=== PATIENT | female | born 1975 | race Caucasian/White ===

== ENCOUNTER 2022-11-08 11:50 | Inpatient (IN) | payer MEDICARE, MEDICAID ==
[~2022-11-08] VITALS: Ht 157.5 cm; Wt 84.8 kg
[2022-11-08] MEDS ORDERED: HALOPERIDOL LACTATE 5 MG/ML VIAL IM ONE ×2 (12:45→22:45)
[2022-11-08] MEDS ORDERED: DiphenhydrAMINE HCL 50 MG/ML VIAL IM ONE ×2 (12:45→22:45)
[2022-11-08] MEDS ORDERED: LORazepam 2 MG/ML VIAL IM ONE ×2 (12:45→22:45)
[2022-11-08 14:28] LABS: BASOPHILS % (AUTO) 0.5 % (0.0-2.0); EOSINOPHILS % (AUTO) 1.7 % (1.0-6.0); HEMATOCRIT 37.6 % (41-53); LYMPHOCYTES # (AUTO) 1.8 K/uL (1.0-4.8); LYMPHOCYTES % (AUTO) 20.7 % (22.0-44.0); MEAN CORPUSCULAR HEMOGLOBIN 28.4 pg (26.0-34.0); MEAN CORPUSCULAR HGB CONC 31.9 G/dL (31.0-37.0); MEAN CORPUSCULAR VOLUME 89 fL (80-100); MONOCYTES # (AUTO) 0.7 K/uL (0.1-1.0); MONOCYTES % (AUTO) 8.3 % (2.0-9.0); NEUTROPHILS # (AUTO) 6.1 K/uL (1.8-7.7); NEUTROPHILS % (AUTO) 68.8 % (40.0-70.0); PLATELET COUNT (AUTO) 264 K/uL (150-450); RED BLOOD CELL COUNT(AUTO) 4.23 MIL/uL (4.50-5.90); RED CELL DISTRIBUTION WIDTH 15.3 % (11.5-14.5)
[2022-11-08 14:39] LABS: ANION GAP 7 mmol/L (8-16); CALCIUM, TOTAL 8.7 mg/dL (8.8-10.5); CARBON DIOXIDE 25 mmol/L (22-29); CHLORIDE 103 mmol/L (98-107); GLUCOSE,RANDOM 91 mg/dL (70-110); POTASSIUM 3.2 mmol/L (3.5-5.1); SODIUM SERUM 135 mmol/L (136-145); UREA NITROGEN, BLOOD 15 mg/dL (7-18)
[2022-11-08 14:42] LABS: GLOMERULAR FILTR. RATE CALC > 60 mL/min (>60)
[2022-11-08 14:44] LABS: ALANINE AMINOTRANSFERASE 31 U/L (12-78); ALBUMIN 2.5 g/dL (3.4-5.0); ALKALINE PHOSPHATASE 86 U/L (46-116); ASPARTATE AMINOTRANSFERASE 29 U/L (15-37); BILIRUBIN,TOTAL 0.4 mg/dL (0.1-1.0); TOTAL PROTEIN, SERUM 6.4 g/dL (6.4-8.2)
[2022-11-08] MEDS ORDERED: PROMETHAZINE HCL 25 MG TABLET PO PRN (22:00)
[2022-11-08] MEDS ORDERED: MAGNESIUM HYDROXIDE SUSPENSION 30 ML UDCUP PO PRN (22:00)
[2022-11-08] MEDS ORDERED: GuaiFENesin/D-METHORPHAN [SUGAR-FREE] 200-20MG/10 ML SYRUP UDCUP PO PRN (22:00)
[2022-11-08] MEDS ORDERED: ACETAMINOPHEN 325 MG TABLET PO PRN (22:00)
[2022-11-08] MEDS ORDERED: MAG HYDROX/AL HYDROX/SIMETH ES 30 ML SUSPENSION UDCUP PO PRN (22:00)
[2022-11-08] MEDS ORDERED: LOPERAMIDE HCL 2 MG CAPSULE PO PRN (22:00)
[2022-11-08] MEDS ORDERED: ZOLPIDEM TARTRATE 10 MG TABLET PO PRN (22:00)
[2022-11-08] MEDS ORDERED: HydrOXYzine PAMOATE 50 MG CAPSULE PO PRN (22:00)
[2022-11-08] MEDS ORDERED: TUBERCULIN, PURIFIED PROTEIN DERIVATIVE 5 TU/0.1 ML SYRINGE ID ONE (22:00)
[2022-11-08 23:10] LABS: COVID AG,FIA SOURCE NASAL SWAB
[2022-11-09 08:33] VITALS: BP 137/66
[2022-11-09] MEDS: NALTREXONE HCL 50 MG TABLET PO SCH (09:00)
[2022-11-09] MEDS: FOLIC ACID 1 MG TABLET PO SCH (09:00)
[2022-11-09] MEDS: MULTIVITAMINS WITH MINERALS, THERAPEUTIC TABLET PO SCH (09:00)
[2022-11-09] MEDS: THIAMINE 100 MG TABLET PO SCH ×2 (09:00→17:00)
[2022-11-09] MEDS ORDERED: POTASSIUM CHLORIDE 20 MEQ ER TABLET PO ONE ×2 (14:45→21:00)
[2022-11-09] MEDS: MELATONIN 5 MG TABLET PO SCH (21:00)
[2022-11-09] MEDS: OLANZapine 5 MG RAPDIS TABLET PO SCH (21:00)
[2022-11-10] MEDS ORDERED: POTASSIUM CHLORIDE 20 MEQ ER TABLET PO ONE (07:45)
[2022-11-10] MEDS: THIAMINE 100 MG TABLET PO SCH ×2 (08:18→16:37)
[2022-11-10] MEDS: NALTREXONE HCL 50 MG TABLET PO SCH (08:18)
[2022-11-10] MEDS: MULTIVITAMINS WITH MINERALS, THERAPEUTIC TABLET PO SCH (08:19)
[2022-11-10] MEDS: FOLIC ACID 1 MG TABLET PO SCH (08:19)
[2022-11-10 08:27] VITALS: BP 130/92
[2022-11-10] MEDS: DIVALPROEX SODIUM 500 MG ER TABLET PO SCH ×2 (19:57→21:00)
[2022-11-10] MEDS: MELATONIN 5 MG TABLET PO SCH ×2 (19:57→21:00)
[2022-11-10] MEDS: OLANZapine 5 MG RAPDIS TABLET PO SCH ×2 (19:58→21:00)
[2022-11-10] MEDS ORDERED: PALIPERIDONE PALMITATE 234 MG/1.5 ML SYRINGE IM ONE (21:00)
[2022-11-11 08:16] VITALS: BP 110/62
[2022-11-11] MEDS: MULTIVITAMINS WITH MINERALS, THERAPEUTIC TABLET PO SCH (08:27)
[2022-11-11] MEDS: NALTREXONE HCL 50 MG TABLET PO SCH (08:28)
[2022-11-11] MEDS: FOLIC ACID 1 MG TABLET PO SCH (08:28)
[2022-11-11] MEDS: THIAMINE 100 MG TABLET PO SCH ×2 (08:29→16:30)
[2022-11-11] MEDS: OLANZapine 5 MG RAPDIS TABLET PO PRN (12:59)
[2022-11-11] MEDS: LORazepam 2 MG TABLET PO PRN (12:59)
[2022-11-11 15:44] LABS: APPEARANCE,URINE HAZY (CLEAR); BILIRUBIN,URINE NEGATIVE (NEGATIVE); GLUCOSE, URINE (UA) NEGATIVE (NEGATIVE); LEUKOCYTE ESTERASE ,URINE NEGATIVE (NEGATIVE); NITRATE,URINE NEGATIVE (NEGATIVE); OCCULT BLOOD,URINE NEGATIVE (NEGATIVE); PROTEIN,URINE TRACE mg/dL (NEGATIVE); SPECIFIC GRAVITIY, URINE 1.021 (1.003-1.030); UROBILINOGEN,URINE <=1.0 mg/dL (<=1.0)
[2022-11-11 15:45] LABS: AMPHET/METH SCREEN,URINE POSITIVE (NEGATIVE); BARBITURATE SCREEN, URINE NEGATIVE (NEGATIVE); BENZODIAZEPINES SCREEN,URINE NEGATIVE (NEGATIVE); CANNABINOID SCREEN,URINE NEGATIVE (NEGATIVE); COCAINE SCREEN,URINE NEGATIVE (NEGATIVE); METHADONE SCREEN, URINE NEGATIVE (NEGATIVE); OPIATE SCREEN,URINE NEGATIVE (NEGATIVE)
[2022-11-11 15:48] LABS: PHENCYCLIDINE SCREEN,URINE NEGATIVE (NEGATIVE)
[2022-11-11] MEDS: OLANZapine 5 MG RAPDIS TABLET PO SCH (20:13)
[2022-11-11] MEDS: DIVALPROEX SODIUM 500 MG ER TABLET PO SCH (20:13)
[2022-11-11] MEDS: MELATONIN 5 MG TABLET PO SCH (20:13)
[2022-11-11 21:04] VITALS: BP 141/76
[2022-11-12] MEDS: FOLIC ACID 1 MG TABLET PO SCH (10:13)
[2022-11-12] MEDS: NALTREXONE HCL 50 MG TABLET PO SCH (10:13)
[2022-11-12] MEDS: LORazepam 2 MG TABLET PO PRN (10:13)
[2022-11-12] MEDS: MULTIVITAMINS WITH MINERALS, THERAPEUTIC TABLET PO SCH (10:13)
[2022-11-12] MEDS: THIAMINE 100 MG TABLET PO SCH ×2 (10:13→16:15)
[2022-11-12] MEDS: OLANZapine 5 MG RAPDIS TABLET PO PRN (14:14)
[2022-11-12] MEDS ORDERED: LORazepam 2 MG/ML VIAL ONE (16:32)
[2022-11-12] MEDS ORDERED: HALOPERIDOL LACTATE 5 MG/ML VIAL ONE (16:33)
[2022-11-12] MEDS ORDERED: DiphenhydrAMINE HCL 50 MG/ML VIAL ONE (16:33)
[2022-11-12] MEDS ORDERED: LORazepam 2 MG/ML VIAL IM ONE (16:45)
[2022-11-12] MEDS ORDERED: HALOPERIDOL LACTATE 5 MG/ML VIAL IM ONE (16:45)
[2022-11-12] MEDS ORDERED: DiphenhydrAMINE HCL 50 MG/ML VIAL IM ONE (16:45)
[2022-11-12] MEDS: DIVALPROEX SODIUM 500 MG ER TABLET PO SCH (21:00)
[2022-11-12] MEDS: MELATONIN 5 MG TABLET PO SCH (21:00)
[2022-11-13] MEDS: NALTREXONE HCL 50 MG TABLET PO SCH (09:00)
[2022-11-13] MEDS: THIAMINE 100 MG TABLET PO SCH ×2 (09:00→17:00)
[2022-11-13] MEDS: MULTIVITAMINS WITH MINERALS, THERAPEUTIC TABLET PO SCH (09:00)
[2022-11-13] MEDS: FOLIC ACID 1 MG TABLET PO SCH (09:00)
[2022-11-13] MEDS: LORazepam 2 MG TABLET PO PRN (14:00)
[2022-11-13] MEDS: OLANZapine 5 MG RAPDIS TABLET PO PRN (14:00)
[2022-11-13] MEDS ORDERED: DiphenhydrAMINE HCL 50 MG/ML VIAL IM ONE (14:30)
[2022-11-13] MEDS ORDERED: LORazepam 2 MG/ML VIAL IM ONE (14:30)
[2022-11-13] MEDS ORDERED: HALOPERIDOL LACTATE 5 MG/ML VIAL IM ONE (14:30)
[2022-11-13] MEDS ORDERED: DiphenhydrAMINE HCL 50 MG/ML VIAL ONE (14:31)
[2022-11-13] MEDS: MELATONIN 5 MG TABLET PO SCH (21:00)
[2022-11-13] MEDS: DIVALPROEX SODIUM 500 MG ER TABLET PO SCH (21:00)
[2022-11-14] MEDS ORDERED: PALIPERIDONE PALMITATE 156 MG/ML SYRINGE IM ONE (09:00)
[2022-11-14] MEDS ORDERED: LORazepam 2 MG/ML VIAL ONE (09:01)
[2022-11-14] MEDS ORDERED: HALOPERIDOL LACTATE 5 MG/ML VIAL ONE (09:02)
[2022-11-14] MEDS ORDERED: DiphenhydrAMINE HCL 50 MG/ML VIAL ONE (09:02)
[2022-11-14] MEDS ORDERED: LORazepam 2 MG/ML VIAL IM ONE (09:15)
[2022-11-14] MEDS ORDERED: DiphenhydrAMINE HCL 50 MG/ML VIAL IM ONE (09:15)
[2022-11-14] MEDS ORDERED: HALOPERIDOL LACTATE 5 MG/ML VIAL IM ONE (09:15)
[2022-11-14] MEDS: THIAMINE 100 MG TABLET PO SCH ×2 (09:42→16:58)
[2022-11-14] MEDS: MULTIVITAMINS WITH MINERALS, THERAPEUTIC TABLET PO SCH (09:42)
[2022-11-14] MEDS: NALTREXONE HCL 50 MG TABLET PO SCH (09:42)
[2022-11-14] MEDS: FOLIC ACID 1 MG TABLET PO SCH (09:42)
[2022-11-14] MEDS: DIVALPROEX SODIUM 500 MG ER TABLET PO SCH (20:21)
[2022-11-14] MEDS: MELATONIN 5 MG TABLET PO SCH (20:21)
[2022-11-15 08:15] VITALS: BP 129/80
[2022-11-15] MEDS: FOLIC ACID 1 MG TABLET PO SCH (09:14)
[2022-11-15] MEDS: OLANZapine 10 MG RAPDIS TABLET PO SCH ×2 (09:14→16:54)
[2022-11-15] MEDS: NALTREXONE HCL 50 MG TABLET PO SCH (09:14)
[2022-11-15] MEDS: THIAMINE 100 MG TABLET PO SCH ×2 (09:14→16:54)
[2022-11-15] MEDS: MULTIVITAMINS WITH MINERALS, THERAPEUTIC TABLET PO SCH (09:14)
[2022-11-15] MEDS: LORazepam 2 MG TABLET PO PRN (09:17)
[2022-11-15] MEDS: MELATONIN 5 MG TABLET PO SCH (20:43)
[2022-11-15] MEDS: DIVALPROEX SODIUM 500 MG ER TABLET PO SCH (20:44)
[2022-11-16 08:31] VITALS: BP 112/69
[2022-11-16] MEDS: MULTIVITAMINS WITH MINERALS, THERAPEUTIC TABLET PO SCH (08:41)
[2022-11-16] MEDS: OLANZapine 5 MG RAPDIS TABLET PO PRN (08:41)
[2022-11-16] MEDS: NALTREXONE HCL 50 MG TABLET PO SCH (08:42)
[2022-11-16] MEDS: THIAMINE 100 MG TABLET PO SCH ×3 (08:42→17:14)
[2022-11-16] MEDS: LORazepam 2 MG TABLET PO PRN (08:42)
[2022-11-16] MEDS: FOLIC ACID 1 MG TABLET PO SCH (08:42)
[2022-11-16] MEDS: DIVALPROEX SODIUM 500 MG ER TABLET PO SCH (20:14)
[2022-11-16] MEDS: MELATONIN 5 MG TABLET PO SCH (20:15)
[2022-11-17 08:12] VITALS: BP 118/79
[2022-11-17] MEDS: THIAMINE 100 MG TABLET PO SCH ×2 (08:51→16:23)
[2022-11-17] MEDS: MULTIVITAMINS WITH MINERALS, THERAPEUTIC TABLET PO SCH (08:51)
[2022-11-17] MEDS: NALTREXONE HCL 50 MG TABLET PO SCH (08:51)
[2022-11-17] MEDS: FOLIC ACID 1 MG TABLET PO SCH (08:51)
[2022-11-17] MEDS ORDERED: CloZAPine 25 MG TABLET PO SCH (09:00)
[2022-11-17 12:41] LABS: GLUCOMETER DEV NAME(LOC) POC.BV
[2022-11-17] MEDS: OLANZapine 5 MG RAPDIS TABLET PO PRN (15:59)
[2022-11-17] MEDS: GABAPENTIN 300 MG CAPSULE PO PRN (15:59)
[2022-11-17] MEDS: MELATONIN 5 MG TABLET PO SCH (20:57)
[2022-11-17] MEDS: DIVALPROEX SODIUM 500 MG ER TABLET PO SCH (20:57)
[2022-11-18] MEDS: GABAPENTIN 300 MG CAPSULE PO PRN ×2 (06:41→12:48)
[2022-11-18] MEDS: OLANZapine 5 MG RAPDIS TABLET PO PRN ×2 (06:41→12:47)
[2022-11-18 07:26] LABS: BASOPHILS % (AUTO) 0.9 % (0.0-2.0); EOSINOPHILS % (AUTO) 1.7 % (1.0-6.0); HEMATOCRIT 41.8 % (36-46); HEMOGLOBIN 13.7 g/dL (12.0-16.0); LYMPHOCYTES # (AUTO) 2.1 K/uL (1.0-4.8); LYMPHOCYTES % (AUTO) 28.7 % (22.0-44.0); MEAN CORPUSCULAR HEMOGLOBIN 28.9 pg (26.0-34.0); MEAN CORPUSCULAR HGB CONC 32.7 G/dL (31.0-37.0); MEAN CORPUSCULAR VOLUME 88 fL (80-100); MONOCYTES # (AUTO) 0.5 K/uL (0.1-1.0); MONOCYTES % (AUTO) 6.9 % (2.0-9.0); NEUTROPHILS # (AUTO) 4.4 K/uL (1.8-7.7); NEUTROPHILS % (AUTO) 61.8 % (40.0-70.0); PLATELET COUNT (AUTO) 243 K/uL (150-450); RED BLOOD CELL COUNT(AUTO) 4.73 MIL/uL (4.00-5.20); RED CELL DISTRIBUTION WIDTH 15.3 % (11.5-14.5)
[2022-11-18 08:13] VITALS: BP 119/86
[2022-11-18] MEDS: THIAMINE 100 MG TABLET PO SCH ×3 (09:00→17:00)
[2022-11-18] MEDS: FOLIC ACID 1 MG TABLET PO SCH ×2 (09:00→12:47)
[2022-11-18] MEDS: NALTREXONE HCL 50 MG TABLET PO SCH ×2 (09:00→12:47)
[2022-11-18] MEDS: MULTIVITAMINS WITH MINERALS, THERAPEUTIC TABLET PO SCH ×2 (09:00→12:47)
[2022-11-18] MEDS ORDERED: CloZAPine 25 MG TABLET PO SCH ×3 (09:00→21:00)
[2022-11-18] MEDS ORDERED: HALOPERIDOL LACTATE 5 MG/ML VIAL ONE (14:59)
[2022-11-18] MEDS ORDERED: HALOPERIDOL LACTATE 5 MG/ML VIAL IM ONE (15:00)
[2022-11-18] MEDS ORDERED: LORazepam 2 MG/ML VIAL IM ONE (15:00)
[2022-11-18] MEDS ORDERED: DiphenhydrAMINE HCL 50 MG/ML VIAL IM ONE (15:00)
[2022-11-18] MEDS: MELATONIN 5 MG TABLET PO SCH (21:00)
[2022-11-18] MEDS: DIVALPROEX SODIUM 500 MG ER TABLET PO SCH (21:00)
[2022-11-19] MEDS ORDERED: CloZAPine 25 MG TABLET PO SCH ×4 (09:00→21:00)
[2022-11-19] MEDS: NALTREXONE HCL 50 MG TABLET PO SCH (09:42)
[2022-11-19] MEDS: MULTIVITAMINS WITH MINERALS, THERAPEUTIC TABLET PO SCH (09:42)
[2022-11-19] MEDS: GABAPENTIN 300 MG CAPSULE PO PRN (09:44)
[2022-11-19] MEDS: OLANZapine 5 MG RAPDIS TABLET PO PRN (09:44)
[2022-11-19] MEDS ORDERED: LORazepam 2 MG/ML VIAL IM ONE (16:45)
[2022-11-19] MEDS ORDERED: HALOPERIDOL LACTATE 5 MG/ML VIAL IM ONE (16:45)
[2022-11-19] MEDS ORDERED: DiphenhydrAMINE HCL 50 MG/ML VIAL IM ONE (16:45)
[2022-11-19 19:27] VITALS: BP 113/84
[2022-11-19] MEDS: MELATONIN 5 MG TABLET PO SCH (20:11)
[2022-11-19] MEDS: DIVALPROEX SODIUM 500 MG ER TABLET PO SCH (20:11)
[2022-11-20 08:21] VITALS: BP 112/68
[2022-11-20] MEDS: MULTIVITAMINS WITH MINERALS, THERAPEUTIC TABLET PO SCH (08:24)
[2022-11-20] MEDS: NALTREXONE HCL 50 MG TABLET PO SCH (08:24)
[2022-11-20] MEDS ORDERED: CloZAPine 25 MG TABLET PO SCH ×3 (09:00→21:00)
[2022-11-20] MEDS: DIVALPROEX SODIUM 500 MG ER TABLET PO SCH (20:22)
[2022-11-20] MEDS: MELATONIN 5 MG TABLET PO SCH (20:22)
[2022-11-21] MEDS: MULTIVITAMINS WITH MINERALS, THERAPEUTIC TABLET PO SCH (09:38)
[2022-11-21] MEDS: CloZAPine 25 MG TABLET PO SCH ×2 (09:38→20:20)
[2022-11-21] MEDS: OLANZapine 5 MG RAPDIS TABLET PO PRN (09:39)
[2022-11-21] MEDS: NALTREXONE HCL 50 MG TABLET PO SCH (09:39)
[2022-11-21] MEDS: DIVALPROEX SODIUM 500 MG ER TABLET PO SCH (20:21)
[2022-11-21] MEDS: MELATONIN 5 MG TABLET PO SCH (20:21)
[2022-11-22] MEDS ORDERED: CloZAPine 25 MG TABLET PO SCH (09:00)
[2022-11-22] MEDS: CloZAPine 25 MG TABLET PO SCH ×2 (09:25→20:46)
[2022-11-22] MEDS: NALTREXONE HCL 50 MG TABLET PO SCH (09:25)
[2022-11-22] MEDS: MULTIVITAMINS WITH MINERALS, THERAPEUTIC TABLET PO SCH (09:25)
[2022-11-22] MEDS: OLANZapine 5 MG RAPDIS TABLET PO PRN ×2 (09:53→16:29)
[2022-11-22] MEDS: GABAPENTIN 300 MG CAPSULE PO PRN (16:29)
[2022-11-22 20:18] VITALS: BP 100/63
[2022-11-22] MEDS: MELATONIN 5 MG TABLET PO SCH (20:46)
[2022-11-22] MEDS: DIVALPROEX SODIUM 500 MG ER TABLET PO SCH (20:46)
[2022-11-22] MEDS ORDERED: CloZAPine 100 MG TABLET PO SCH (21:00)
[2022-11-23 08:31] VITALS: BP 119/81
[2022-11-23] MEDS ORDERED: CloZAPine 25 MG TABLET PO SCH ×2 (09:00)
[2022-11-23] MEDS: NALTREXONE HCL 50 MG TABLET PO SCH (09:11)
[2022-11-23] MEDS: MULTIVITAMINS WITH MINERALS, THERAPEUTIC TABLET PO SCH (09:11)
[2022-11-23] MEDS: GABAPENTIN 300 MG CAPSULE PO PRN (17:30)
[2022-11-23] MEDS: OLANZapine 5 MG RAPDIS TABLET PO PRN (17:31)
[2022-11-23] MEDS ORDERED: CloZAPine 100 MG TABLET PO SCH ×2 (21:00)
[2022-11-23] MEDS: DIVALPROEX SODIUM 500 MG ER TABLET PO SCH (21:01)
[2022-11-23] MEDS: MELATONIN 5 MG TABLET PO SCH (21:01)
[2022-11-24] MEDS ORDERED: CloZAPine 25 MG TABLET PO SCH ×2 (09:00)
[2022-11-24] MEDS: MULTIVITAMINS WITH MINERALS, THERAPEUTIC TABLET PO SCH (09:20)
[2022-11-24] MEDS: GABAPENTIN 300 MG CAPSULE PO PRN ×2 (09:20→10:29)
[2022-11-24] MEDS: NALTREXONE HCL 50 MG TABLET PO SCH (09:21)
[2022-11-24] MEDS: OLANZapine 5 MG RAPDIS TABLET PO PRN (10:55)
[2022-11-24] MEDS: DIVALPROEX SODIUM 250 MG ER TABLET PO SCH (20:39)
[2022-11-24] MEDS: DIVALPROEX SODIUM 500 MG ER TABLET PO SCH (20:39)
[2022-11-24] MEDS: MELATONIN 5 MG TABLET PO SCH (20:40)
[2022-11-24] MEDS ORDERED: CloZAPine 100 MG TABLET PO SCH ×2 (21:00)
[2022-11-25] MEDS: GABAPENTIN 300 MG CAPSULE PO PRN (07:34)
[2022-11-25] MEDS: OLANZapine 5 MG RAPDIS TABLET PO PRN (07:35)
[2022-11-25 08:31] VITALS: BP 122/89
[2022-11-25] MEDS ORDERED: CloZAPine 25 MG TABLET PO SCH (09:00)
[2022-11-25] MEDS ORDERED: CloZAPine 100 MG TABLET PO SCH ×2 (09:00→21:00)
[2022-11-25] MEDS: NALTREXONE HCL 50 MG TABLET PO SCH (09:04)
[2022-11-25] MEDS: MULTIVITAMINS WITH MINERALS, THERAPEUTIC TABLET PO SCH (09:04)
[2022-11-25 20:00] VITALS: BP 118/79
[2022-11-25] MEDS: DIVALPROEX SODIUM 500 MG ER TABLET PO SCH (20:25)
[2022-11-25] MEDS: DIVALPROEX SODIUM 250 MG ER TABLET PO SCH (20:34)
[2022-11-25] MEDS: MELATONIN 5 MG TABLET PO SCH (20:34)
[2022-11-25] MEDS ORDERED: TUBERCULIN, PURIFIED PROTEIN DERIVATIVE 5 TU/0.1 ML SYRINGE ID ONE (22:15)
[2022-11-26 07:34] LABS: BASOPHILS % (AUTO) 0.6 % (0.0-2.0); EOSINOPHILS % (AUTO) 3.2 % (1.0-6.0); HEMATOCRIT 41.9 % (36-46); HEMOGLOBIN 13.7 g/dL (12.0-16.0); LYMPHOCYTES # (AUTO) 1.8 K/uL (1.0-4.8); LYMPHOCYTES % (AUTO) 29.4 % (22.0-44.0); MEAN CORPUSCULAR HEMOGLOBIN 28.8 pg (26.0-34.0); MEAN CORPUSCULAR HGB CONC 32.8 G/dL (31.0-37.0); MEAN CORPUSCULAR VOLUME 88 fL (80-100); MONOCYTES # (AUTO) 0.4 K/uL (0.1-1.0); MONOCYTES % (AUTO) 6.9 % (2.0-9.0); NEUTROPHILS # (AUTO) 3.7 K/uL (1.8-7.7); NEUTROPHILS % (AUTO) 59.9 % (40.0-70.0); PLATELET COUNT (AUTO) 244 K/uL (150-450); RED BLOOD CELL COUNT(AUTO) 4.76 MIL/uL (4.00-5.20); RED CELL DISTRIBUTION WIDTH 15.1 % (11.5-14.5)
[2022-11-26 08:26] VITALS: BP 122/83
[2022-11-26] MEDS: OLANZapine 5 MG RAPDIS TABLET PO PRN ×2 (08:40→16:49)
[2022-11-26] MEDS: NALTREXONE HCL 50 MG TABLET PO SCH (08:40)
[2022-11-26] MEDS: MULTIVITAMINS WITH MINERALS, THERAPEUTIC TABLET PO SCH (08:40)
[2022-11-26] MEDS: CloZAPine 100 MG TABLET PO SCH ×2 (08:40→20:05)
[2022-11-26 08:41] LABS: GLUCOMETER DEV NAME(LOC) POC.BV
[2022-11-26] MEDS: GABAPENTIN 300 MG CAPSULE PO PRN (16:49)
[2022-11-26] MEDS ORDERED: LORazepam 2 MG/ML VIAL IM ONE (17:15)
[2022-11-26] MEDS ORDERED: HALOPERIDOL LACTATE 5 MG/ML VIAL IM ONE (17:15)
[2022-11-26] MEDS ORDERED: DiphenhydrAMINE HCL 50 MG/ML VIAL IM ONE (17:15)
[2022-11-26] MEDS: MELATONIN 5 MG TABLET PO SCH (20:05)
[2022-11-26] MEDS: DIVALPROEX SODIUM 500 MG ER TABLET PO SCH (20:05)
[2022-11-26] MEDS: DIVALPROEX SODIUM 250 MG ER TABLET PO SCH (20:05)
[2022-11-27] MEDS ORDERED: CloZAPine 25 MG TABLET PO SCH (09:00)
[2022-11-27] MEDS: MULTIVITAMINS WITH MINERALS, THERAPEUTIC TABLET PO SCH (12:39)
[2022-11-27] MEDS: NALTREXONE HCL 50 MG TABLET PO SCH (12:39)
[2022-11-27] MEDS: CloZAPine 100 MG TABLET PO SCH ×2 (13:00→20:31)
[2022-11-27] MEDS: DIVALPROEX SODIUM 250 MG ER TABLET PO SCH (20:30)
[2022-11-27] MEDS: MELATONIN 5 MG TABLET PO SCH (20:31)
[2022-11-27] MEDS: DIVALPROEX SODIUM 500 MG ER TABLET PO SCH (20:31)
[2022-11-27] MEDS ORDERED: CloZAPine 100 MG TABLET PO SCH (21:00)
[2022-11-28] MEDS: MULTIVITAMINS WITH MINERALS, THERAPEUTIC TABLET PO SCH (08:27)
[2022-11-28] MEDS: NALTREXONE HCL 50 MG TABLET PO SCH (08:27)
[2022-11-28] MEDS ORDERED: CloZAPine 25 MG TABLET PO SCH ×2 (09:00)
[2022-11-28] MEDS: MELATONIN 5 MG TABLET PO SCH (20:18)
[2022-11-28] MEDS: DIVALPROEX SODIUM 500 MG ER TABLET PO SCH (20:18)
[2022-11-28] MEDS: DIVALPROEX SODIUM 250 MG ER TABLET PO SCH (20:18)
[2022-11-28] MEDS ORDERED: CloZAPine 100 MG TABLET PO SCH ×2 (21:00)
[2022-11-29] MEDS ORDERED: CloZAPine 100 MG TABLET PO SCH ×3 (09:00→21:00)
[2022-11-29] MEDS ORDERED: CloZAPine 25 MG TABLET PO SCH (09:00)
[2022-11-29] MEDS: NALTREXONE HCL 50 MG TABLET PO SCH (09:53)
[2022-11-29] MEDS: MULTIVITAMINS WITH MINERALS, THERAPEUTIC TABLET PO SCH (09:54)
[2022-11-29] MEDS: GABAPENTIN 300 MG CAPSULE PO PRN (09:54)
[2022-11-29] MEDS: DIVALPROEX SODIUM 500 MG ER TABLET PO SCH (20:46)
[2022-11-29] MEDS: DIVALPROEX SODIUM 250 MG ER TABLET PO SCH (20:46)
[2022-11-29] MEDS: MELATONIN 5 MG TABLET PO SCH (20:46)
[2022-11-30 08:25] VITALS: BP 116/74
[2022-11-30] MEDS: MULTIVITAMINS WITH MINERALS, THERAPEUTIC TABLET PO SCH (08:43)
[2022-11-30] MEDS: CloZAPine 100 MG TABLET PO SCH ×2 (08:43→20:35)
[2022-11-30] MEDS: NALTREXONE HCL 50 MG TABLET PO SCH (08:43)
[2022-11-30] MEDS: GABAPENTIN 300 MG CAPSULE PO PRN (12:03)
[2022-11-30] MEDS: MELATONIN 5 MG TABLET PO SCH (20:32)
[2022-11-30] MEDS: DIVALPROEX SODIUM 500 MG ER TABLET PO SCH (20:33)
[2022-11-30] MEDS: DIVALPROEX SODIUM 250 MG ER TABLET PO SCH (20:33)
[2022-11-30 20:41] VITALS: BP 118/74
[2022-12-01 08:34] VITALS: BP 106/69
[2022-12-01] MEDS: MULTIVITAMINS WITH MINERALS, THERAPEUTIC TABLET PO SCH (09:14)
[2022-12-01] MEDS: CloZAPine 100 MG TABLET PO SCH ×2 (09:15→20:10)
[2022-12-01] MEDS: NALTREXONE HCL 50 MG TABLET PO SCH (09:15)
[2022-12-01] MEDS ORDERED: TUBERCULIN, PURIFIED PROTEIN DERIVATIVE 5 TU/0.1 ML SYRINGE ID ONE (14:15)
[2022-12-01] MEDS: GABAPENTIN 300 MG CAPSULE PO PRN (16:11)
[2022-12-01 20:00] VITALS: BP 110/74
[2022-12-01] MEDS: DIVALPROEX SODIUM 500 MG ER TABLET PO SCH (20:10)
[2022-12-01] MEDS: MELATONIN 5 MG TABLET PO SCH (20:10)
[2022-12-01] MEDS: DIVALPROEX SODIUM 250 MG ER TABLET PO SCH (20:10)
[2022-12-02 09:02] LABS: BASOPHILS % (AUTO) 0.5 % (0.0-2.0); EOSINOPHILS % (AUTO) 2.2 % (1.0-6.0); HEMATOCRIT 41.3 % (36-46); HEMOGLOBIN 13.3 g/dL (12.0-16.0); LYMPHOCYTES # (AUTO) 1.9 K/uL (1.0-4.8); LYMPHOCYTES % (AUTO) 24.2 % (22.0-44.0); MEAN CORPUSCULAR HEMOGLOBIN 28.3 pg (26.0-34.0); MEAN CORPUSCULAR HGB CONC 32.3 G/dL (31.0-37.0); MEAN CORPUSCULAR VOLUME 88 fL (80-100); MONOCYTES # (AUTO) 0.5 K/uL (0.1-1.0); MONOCYTES % (AUTO) 6.4 % (2.0-9.0); NEUTROPHILS # (AUTO) 5.3 K/uL (1.8-7.7); NEUTROPHILS % (AUTO) 66.7 % (40.0-70.0); PLATELET COUNT (AUTO) 255 K/uL (150-450); RED BLOOD CELL COUNT(AUTO) 4.71 MIL/uL (4.00-5.20); RED CELL DISTRIBUTION WIDTH 15.4 % (11.5-14.5)
[2022-12-02] MEDS: MULTIVITAMINS WITH MINERALS, THERAPEUTIC TABLET PO SCH (09:52)
[2022-12-02] MEDS: CloZAPine 100 MG TABLET PO SCH ×2 (09:53→21:12)
[2022-12-02] MEDS: NALTREXONE HCL 50 MG TABLET PO SCH (09:53)
[2022-12-02] MEDS: GABAPENTIN 300 MG CAPSULE PO PRN (10:30)
[2022-12-02] MEDS: DIVALPROEX SODIUM 500 MG ER TABLET PO SCH (21:13)
[2022-12-02] MEDS: DIVALPROEX SODIUM 250 MG ER TABLET PO SCH (21:13)
[2022-12-02] MEDS: MELATONIN 5 MG TABLET PO SCH (21:13)
[2022-12-03 07:16] LABS: GLUCOMETER DEV NAME(LOC) POC.BV
[2022-12-03] MEDS: NALTREXONE HCL 50 MG TABLET PO SCH (09:35)
[2022-12-03] MEDS: MULTIVITAMINS WITH MINERALS, THERAPEUTIC TABLET PO SCH (09:35)
[2022-12-03] MEDS: CloZAPine 100 MG TABLET PO SCH ×2 (09:36→20:30)
[2022-12-03] MEDS: DIVALPROEX SODIUM 500 MG ER TABLET PO SCH (20:30)
[2022-12-03 20:32] VITALS: BP 112/78
[2022-12-03] MEDS: DIVALPROEX SODIUM 250 MG ER TABLET PO SCH (20:33)
[2022-12-03] MEDS: MELATONIN 5 MG TABLET PO SCH (20:33)
[2022-12-04] MEDS: CloZAPine 100 MG TABLET PO SCH ×2 (09:10→21:32)
[2022-12-04] MEDS: NALTREXONE HCL 50 MG TABLET PO SCH (09:11)
[2022-12-04] MEDS: MULTIVITAMINS WITH MINERALS, THERAPEUTIC TABLET PO SCH (09:11)
[2022-12-04 20:43] VITALS: BP 125/72
[2022-12-04] MEDS: MELATONIN 5 MG TABLET PO SCH (21:31)
[2022-12-04] MEDS: DIVALPROEX SODIUM 250 MG ER TABLET PO SCH (21:32)
[2022-12-04] MEDS: DIVALPROEX SODIUM 500 MG ER TABLET PO SCH (21:32)
[2022-12-05] MEDS: CloZAPine 100 MG TABLET PO SCH ×2 (08:45→21:38)
[2022-12-05] MEDS: MULTIVITAMINS WITH MINERALS, THERAPEUTIC TABLET PO SCH (08:45)
[2022-12-05] MEDS: NALTREXONE HCL 50 MG TABLET PO SCH (08:45)
[2022-12-05] MEDS: GABAPENTIN 300 MG CAPSULE PO PRN (12:08)
[2022-12-05] MEDS: DIVALPROEX SODIUM 250 MG ER TABLET PO SCH (21:38)
[2022-12-05] MEDS: MELATONIN 5 MG TABLET PO SCH (21:38)
[2022-12-05] MEDS: DIVALPROEX SODIUM 500 MG ER TABLET PO SCH (21:39)
[2022-12-06] MEDS: MULTIVITAMINS WITH MINERALS, THERAPEUTIC TABLET PO SCH ×2 (08:58→09:00)
[2022-12-06] MEDS: NALTREXONE HCL 50 MG TABLET PO SCH ×2 (08:58→09:00)
[2022-12-06] MEDS: CloZAPine 100 MG TABLET PO SCH ×3 (08:59→20:46)
[2022-12-06] MEDS: DIVALPROEX SODIUM 250 MG ER TABLET PO SCH (20:46)
[2022-12-06] MEDS: DIVALPROEX SODIUM 500 MG ER TABLET PO SCH (20:46)
[2022-12-06] MEDS: MELATONIN 5 MG TABLET PO SCH (20:46)
[2022-12-07] MEDS: MULTIVITAMINS WITH MINERALS, THERAPEUTIC TABLET PO SCH (08:41)
[2022-12-07] MEDS: NALTREXONE HCL 50 MG TABLET PO SCH (08:41)
[2022-12-07] MEDS: OLANZapine 5 MG RAPDIS TABLET PO PRN (11:51)
[2022-12-07] MEDS: GABAPENTIN 300 MG CAPSULE PO PRN (11:51)
[2022-12-07] MEDS: DIVALPROEX SODIUM 500 MG ER TABLET PO SCH (20:14)
[2022-12-07] MEDS: DIVALPROEX SODIUM 250 MG ER TABLET PO SCH (20:14)
[2022-12-07] MEDS: CloZAPine 100 MG TABLET PO SCH (20:15)
[2022-12-07] MEDS: MELATONIN 5 MG TABLET PO SCH (20:15)
[2022-12-08] MEDS: NALTREXONE HCL 50 MG TABLET PO SCH (09:04)
[2022-12-08] MEDS: MULTIVITAMINS WITH MINERALS, THERAPEUTIC TABLET PO SCH (09:04)
[2022-12-08] MEDS: CloZAPine 100 MG TABLET PO SCH (20:21)
[2022-12-08] MEDS: DIVALPROEX SODIUM 500 MG ER TABLET PO SCH (20:21)
[2022-12-08] MEDS: DIVALPROEX SODIUM 250 MG ER TABLET PO SCH (20:21)
[2022-12-08] MEDS: MELATONIN 5 MG TABLET PO SCH (20:24)
[2022-12-09 08:22] VITALS: BP 109/68
[2022-12-09] MEDS: MULTIVITAMINS WITH MINERALS, THERAPEUTIC TABLET PO SCH (09:05)
[2022-12-09] MEDS: NALTREXONE HCL 50 MG TABLET PO SCH (09:05)
[2022-12-09] MEDS: GABAPENTIN 300 MG CAPSULE PO PRN (13:23)
[2022-12-09] MEDS: OLANZapine 5 MG RAPDIS TABLET PO PRN (15:45)
[2022-12-09] MEDS: DIVALPROEX SODIUM 250 MG ER TABLET PO SCH (20:18)
[2022-12-09] MEDS: MELATONIN 5 MG TABLET PO SCH (20:19)
[2022-12-09] MEDS: DIVALPROEX SODIUM 500 MG ER TABLET PO SCH (20:19)
[2022-12-09] MEDS: CloZAPine 100 MG TABLET PO SCH (20:19)
[2022-12-10 07:15] LABS: BASOPHILS % (AUTO) 0.9 % (0.0-2.0); EOSINOPHILS % (AUTO) 0.2 % (1.0-6.0); HEMATOCRIT 41.9 % (36-46); HEMOGLOBIN 13.7 g/dL (12.0-16.0); LYMPHOCYTES # (AUTO) 2.6 K/uL (1.0-4.8); LYMPHOCYTES % (AUTO) 32.3 % (22.0-44.0); MEAN CORPUSCULAR HEMOGLOBIN 28.2 pg (26.0-34.0); MEAN CORPUSCULAR HGB CONC 32.6 G/dL (31.0-37.0); MEAN CORPUSCULAR VOLUME 87 fL (80-100); MONOCYTES # (AUTO) 0.7 K/uL (0.1-1.0); MONOCYTES % (AUTO) 8.5 % (2.0-9.0); NEUTROPHILS # (AUTO) 4.6 K/uL (1.8-7.7); NEUTROPHILS % (AUTO) 58.1 % (40.0-70.0); PLATELET COUNT (AUTO) 140 K/uL (150-450); RED BLOOD CELL COUNT(AUTO) 4.84 MIL/uL (4.00-5.20); RED CELL DISTRIBUTION WIDTH 15.1 % (11.5-14.5)
[2022-12-10 08:11] LABS: GLUCOMETER DEV NAME(LOC) POC.BV
[2022-12-10] MEDS: MULTIVITAMINS WITH MINERALS, THERAPEUTIC TABLET PO SCH (08:38)
[2022-12-10] MEDS: NALTREXONE HCL 50 MG TABLET PO SCH (08:38)
[2022-12-10 08:51] VITALS: BP 116/72
[2022-12-10] MEDS: GABAPENTIN 300 MG CAPSULE PO PRN (16:02)
[2022-12-10] MEDS: CloZAPine 100 MG TABLET PO SCH (20:07)
[2022-12-10] MEDS: DIVALPROEX SODIUM 500 MG ER TABLET PO SCH (20:07)
[2022-12-10] MEDS: MELATONIN 5 MG TABLET PO SCH (20:07)
[2022-12-10] MEDS: DIVALPROEX SODIUM 250 MG ER TABLET PO SCH (20:07)
[2022-12-11] MEDS: NALTREXONE HCL 50 MG TABLET PO SCH (08:20)
[2022-12-11] MEDS: MULTIVITAMINS WITH MINERALS, THERAPEUTIC TABLET PO SCH (08:20)
[2022-12-11] MEDS: DIVALPROEX SODIUM 250 MG ER TABLET PO SCH (20:37)
[2022-12-11] MEDS: CloZAPine 100 MG TABLET PO SCH (20:37)
[2022-12-11] MEDS: DIVALPROEX SODIUM 500 MG ER TABLET PO SCH (20:37)
[2022-12-11] MEDS: MELATONIN 5 MG TABLET PO SCH (20:38)
[2022-12-12] MEDS: MULTIVITAMINS WITH MINERALS, THERAPEUTIC TABLET PO SCH (08:27)
[2022-12-12] MEDS: GABAPENTIN 300 MG CAPSULE PO PRN (08:27)
[2022-12-12] MEDS: NALTREXONE HCL 50 MG TABLET PO SCH (08:27)
[2022-12-12] MEDS: MELATONIN 5 MG TABLET PO SCH (20:14)
[2022-12-12] MEDS: DIVALPROEX SODIUM 250 MG ER TABLET PO SCH (20:14)
[2022-12-12] MEDS: CloZAPine 100 MG TABLET PO SCH (20:15)
[2022-12-12] MEDS: DIVALPROEX SODIUM 500 MG ER TABLET PO SCH (20:15)
[2022-12-13] MEDS: NALTREXONE HCL 50 MG TABLET PO SCH (09:54)
[2022-12-13] MEDS: MULTIVITAMINS WITH MINERALS, THERAPEUTIC TABLET PO SCH (09:54)
[2022-12-13] MEDS: CloZAPine 100 MG TABLET PO SCH (20:22)
[2022-12-13] MEDS: MELATONIN 5 MG TABLET PO SCH (20:23)
[2022-12-13] MEDS: DIVALPROEX SODIUM 500 MG ER TABLET PO SCH (20:23)
[2022-12-13] MEDS: DIVALPROEX SODIUM 250 MG ER TABLET PO SCH (20:24)
[2022-12-14] MEDS: MULTIVITAMINS WITH MINERALS, THERAPEUTIC TABLET PO SCH (09:48)
[2022-12-14] MEDS: NALTREXONE HCL 50 MG TABLET PO SCH (09:48)
[2022-12-14] MEDS: OLANZapine 5 MG RAPDIS TABLET PO PRN ×2 (11:19→16:19)
[2022-12-14] MEDS: GABAPENTIN 300 MG CAPSULE PO PRN (11:31)
[2022-12-14] MEDS: DIVALPROEX SODIUM 250 MG ER TABLET PO SCH (20:17)
[2022-12-14] MEDS: CloZAPine 100 MG TABLET PO SCH (20:18)
[2022-12-14] MEDS: DIVALPROEX SODIUM 500 MG ER TABLET PO SCH (20:18)
[2022-12-14] MEDS: MELATONIN 5 MG TABLET PO SCH (20:38)
[2022-12-15] MEDS: NALTREXONE HCL 50 MG TABLET PO SCH (08:14)
[2022-12-15] MEDS: MULTIVITAMINS WITH MINERALS, THERAPEUTIC TABLET PO SCH (08:14)
[2022-12-15] MEDS: GABAPENTIN 300 MG CAPSULE PO PRN (17:17)
[2022-12-15] MEDS: NITROFURANTOIN MONOHYD/M-CRYST 100 MG CAPSULE [MACROBID] PO SCH (18:00)
[2022-12-15] MEDS: DIVALPROEX SODIUM 500 MG ER TABLET PO SCH (20:30)
[2022-12-15] MEDS: DIVALPROEX SODIUM 250 MG ER TABLET PO SCH (20:30)
[2022-12-15] MEDS: MELATONIN 5 MG TABLET PO SCH (20:31)
[2022-12-15] MEDS: CloZAPine 100 MG TABLET PO SCH (20:31)
[2022-12-16 07:32] LABS: BASOPHILS % (AUTO) 0.4 % (0.0-2.0); EOSINOPHILS % (AUTO) 0.1 % (1.0-6.0); HEMOGLOBIN 13.2 g/dL (12.0-16.0); LYMPHOCYTES # (AUTO) 2.6 K/uL (1.0-4.8); LYMPHOCYTES % (AUTO) 30.4 % (22.0-44.0); MEAN CORPUSCULAR HEMOGLOBIN 28.4 pg (26.0-34.0); MEAN CORPUSCULAR VOLUME 86 fL (80-100); MONOCYTES # (AUTO) 0.7 K/uL (0.1-1.0); MONOCYTES % (AUTO) 8.5 % (2.0-9.0); NEUTROPHILS # (AUTO) 5.2 K/uL (1.8-7.7); NEUTROPHILS % (AUTO) 60.6 % (40.0-70.0); PLATELET COUNT (AUTO) 174 K/uL (150-450); RED BLOOD CELL COUNT(AUTO) 4.65 MIL/uL (4.00-5.20); RED CELL DISTRIBUTION WIDTH 15.7 % (11.5-14.5)
[2022-12-16 08:10] LABS: ALANINE AMINOTRANSFERASE 75 U/L (12-78); ALBUMIN 2.5 g/dL (3.4-5.0); ALKALINE PHOSPHATASE 214 U/L (46-116); ANION GAP 8 mmol/L (8-16); ASPARTATE AMINOTRANSFERASE 65 U/L (15-37); BILIRUBIN,TOTAL 0.2 mg/dL (0.1-1.0); CALCIUM, TOTAL 8.5 mg/dL (8.8-10.5); CARBON DIOXIDE 30 mmol/L (22-29); CHLORIDE 102 mmol/L (98-107); CREATININE 0.68 mg/dL (0.60-1.30); GLOMERULAR FILTR. RATE CALC > 60 mL/min (>60); GLUCOSE,RANDOM 88 mg/dL (70-110); POTASSIUM 4.1 mmol/L (3.5-5.1); SODIUM SERUM 140 mmol/L (136-145); TOTAL PROTEIN, SERUM 6.9 g/dL (6.4-8.2); UREA NITROGEN, BLOOD 13 mg/dL (7-18)
[2022-12-16] MEDS: NALTREXONE HCL 50 MG TABLET PO SCH (09:57)
[2022-12-16] MEDS: MULTIVITAMINS WITH MINERALS, THERAPEUTIC TABLET PO SCH (09:57)
[2022-12-16] MEDS: NITROFURANTOIN MONOHYD/M-CRYST 100 MG CAPSULE [MACROBID] PO SCH ×2 (09:57→16:44)
[2022-12-16] MEDS: OLANZapine 5 MG RAPDIS TABLET PO PRN (16:51)
[2022-12-16] MEDS: CloZAPine 100 MG TABLET PO SCH (20:08)
[2022-12-16] MEDS: DIVALPROEX SODIUM 250 MG ER TABLET PO SCH (20:09)
[2022-12-16] MEDS: MELATONIN 5 MG TABLET PO SCH (20:10)
[2022-12-16] MEDS: DIVALPROEX SODIUM 500 MG ER TABLET PO SCH (20:10)
[2022-12-17 08:06] LABS: GLUCOMETER DEV NAME(LOC) POC.BV
[2022-12-17] MEDS: NALTREXONE HCL 50 MG TABLET PO SCH (10:16)
[2022-12-17] MEDS: GABAPENTIN 300 MG CAPSULE PO PRN (10:16)
[2022-12-17] MEDS: NITROFURANTOIN MONOHYD/M-CRYST 100 MG CAPSULE [MACROBID] PO SCH ×2 (10:16→16:59)
[2022-12-17] MEDS: MULTIVITAMINS WITH MINERALS, THERAPEUTIC TABLET PO SCH (10:16)
[2022-12-17] MEDS: CloZAPine 100 MG TABLET PO SCH (21:18)
[2022-12-17] MEDS: DIVALPROEX SODIUM 250 MG ER TABLET PO SCH (21:19)
[2022-12-17] MEDS: MELATONIN 5 MG TABLET PO SCH (21:19)
[2022-12-17] MEDS: DIVALPROEX SODIUM 500 MG ER TABLET PO SCH (21:19)
[2022-12-18] MEDS: MULTIVITAMINS WITH MINERALS, THERAPEUTIC TABLET PO SCH ×2 (08:25→08:39)
[2022-12-18] MEDS: NITROFURANTOIN MONOHYD/M-CRYST 100 MG CAPSULE [MACROBID] PO SCH ×2 (08:26→16:44)
[2022-12-18] MEDS: NALTREXONE HCL 50 MG TABLET PO SCH (08:26)
[2022-12-18] MEDS: CloZAPine 100 MG TABLET PO SCH (20:31)
[2022-12-18] MEDS: DIVALPROEX SODIUM 500 MG ER TABLET PO SCH (20:31)
[2022-12-18] MEDS: MELATONIN 5 MG TABLET PO SCH (20:32)
[2022-12-18] MEDS: DIVALPROEX SODIUM 250 MG ER TABLET PO SCH (20:32)
[2022-12-19] MEDS: NITROFURANTOIN MONOHYD/M-CRYST 100 MG CAPSULE [MACROBID] PO SCH ×2 (09:02→17:07)
[2022-12-19] MEDS: MULTIVITAMINS WITH MINERALS, THERAPEUTIC TABLET PO SCH (09:02)
[2022-12-19] MEDS: NALTREXONE HCL 50 MG TABLET PO SCH (09:02)
[2022-12-19] MEDS: DIVALPROEX SODIUM 500 MG ER TABLET PO SCH (21:23)
[2022-12-19] MEDS: CloZAPine 100 MG TABLET PO SCH (21:23)
[2022-12-19] MEDS: MELATONIN 5 MG TABLET PO SCH (21:24)
[2022-12-19] MEDS: DIVALPROEX SODIUM 250 MG ER TABLET PO SCH (21:24)
[2022-12-20] MEDS: MULTIVITAMINS WITH MINERALS, THERAPEUTIC TABLET PO SCH (08:41)
[2022-12-20] MEDS: NALTREXONE HCL 50 MG TABLET PO SCH (08:41)
[2022-12-20] MEDS: NITROFURANTOIN MONOHYD/M-CRYST 100 MG CAPSULE [MACROBID] PO SCH ×2 (08:41→16:52)
[2022-12-20] MEDS: OLANZapine 5 MG RAPDIS TABLET PO PRN (08:42)
[2022-12-20] MEDS: DIVALPROEX SODIUM 500 MG ER TABLET PO SCH (20:22)
[2022-12-20] MEDS: DIVALPROEX SODIUM 250 MG ER TABLET PO SCH (20:22)
[2022-12-20] MEDS: CloZAPine 100 MG TABLET PO SCH (20:22)
[2022-12-20] MEDS: MELATONIN 5 MG TABLET PO SCH (20:22)
[2022-12-21] MEDS: NITROFURANTOIN MONOHYD/M-CRYST 100 MG CAPSULE [MACROBID] PO SCH ×2 (08:56→16:58)
[2022-12-21] MEDS: NALTREXONE HCL 50 MG TABLET PO SCH (08:56)
[2022-12-21] MEDS: MULTIVITAMINS WITH MINERALS, THERAPEUTIC TABLET PO SCH (08:56)
[2022-12-21] MEDS: GABAPENTIN 300 MG CAPSULE PO PRN (08:57)
[2022-12-21] MEDS: DIVALPROEX SODIUM 250 MG ER TABLET PO SCH (20:06)
[2022-12-21] MEDS: MELATONIN 5 MG TABLET PO SCH (20:06)
[2022-12-21] MEDS: DIVALPROEX SODIUM 500 MG ER TABLET PO SCH (20:06)
[2022-12-21] MEDS: CloZAPine 100 MG TABLET PO SCH (20:07)
[2022-12-22] MEDS: NITROFURANTOIN MONOHYD/M-CRYST 100 MG CAPSULE [MACROBID] PO SCH ×2 (09:05→16:52)
[2022-12-22] MEDS: MULTIVITAMINS WITH MINERALS, THERAPEUTIC TABLET PO SCH (09:05)
[2022-12-22] MEDS: NALTREXONE HCL 50 MG TABLET PO SCH (09:05)
[2022-12-22 20:10] VITALS: BP 112/59
[2022-12-22] MEDS: CloZAPine 100 MG TABLET PO SCH (20:22)
[2022-12-22] MEDS: DIVALPROEX SODIUM 500 MG ER TABLET PO SCH (20:23)
[2022-12-22] MEDS: MELATONIN 5 MG TABLET PO SCH (20:23)
[2022-12-22] MEDS: DIVALPROEX SODIUM 250 MG ER TABLET PO SCH (20:23)
[2022-12-23 08:13] LABS: BASOPHILS % (AUTO) 0.4 % (0.0-2.0); EOSINOPHILS % (AUTO) 0 % (1.0-6.0); HEMOGLOBIN 12.9 g/dL (12.0-16.0); LYMPHOCYTES # (AUTO) 2.4 K/uL (1.0-4.8); LYMPHOCYTES % (AUTO) 28.5 % (22.0-44.0); MEAN CORPUSCULAR HEMOGLOBIN 28.9 pg (26.0-34.0); MEAN CORPUSCULAR HGB CONC 33.8 G/dL (31.0-37.0); MEAN CORPUSCULAR VOLUME 85 fL (80-100); MONOCYTES # (AUTO) 1.2 K/uL (0.1-1.0); MONOCYTES % (AUTO) 14.7 % (2.0-9.0); NEUTROPHILS # (AUTO) 4.7 K/uL (1.8-7.7); NEUTROPHILS % (AUTO) 56.4 % (40.0-70.0); PLATELET COUNT (AUTO) 192 K/uL (150-450); RED BLOOD CELL COUNT(AUTO) 4.45 MIL/uL (4.00-5.20); RED CELL DISTRIBUTION WIDTH 16.5 % (11.5-14.5)
[2022-12-23] MEDS: MULTIVITAMINS WITH MINERALS, THERAPEUTIC TABLET PO SCH (08:50)
[2022-12-23] MEDS: NALTREXONE HCL 50 MG TABLET PO SCH (08:50)
[2022-12-23 09:03] VITALS: BP 108/72
[2022-12-23] MEDS: DIVALPROEX SODIUM 500 MG ER TABLET PO SCH (21:15)
[2022-12-23] MEDS: MELATONIN 5 MG TABLET PO SCH (21:18)
[2022-12-23] MEDS: CloZAPine 100 MG TABLET PO SCH (21:18)
[2022-12-23] MEDS: DIVALPROEX SODIUM 250 MG ER TABLET PO SCH (21:20)
[2022-12-24 08:23] VITALS: BP 112/82
[2022-12-24 08:36] LABS: GLUCOMETER DEV NAME(LOC) POC.BV
[2022-12-24] MEDS: NALTREXONE HCL 50 MG TABLET PO SCH (12:45)
[2022-12-24] MEDS: MULTIVITAMINS WITH MINERALS, THERAPEUTIC TABLET PO SCH (12:45)
[2022-12-24] MEDS: GABAPENTIN 300 MG CAPSULE PO PRN (12:46)
[2022-12-24] MEDS: OLANZapine 5 MG RAPDIS TABLET PO PRN (12:46)
[2022-12-24] MEDS: DIVALPROEX SODIUM 250 MG ER TABLET PO SCH (20:22)
[2022-12-24] MEDS: DIVALPROEX SODIUM 500 MG ER TABLET PO SCH (20:22)
[2022-12-24] MEDS: CloZAPine 100 MG TABLET PO SCH (20:23)
[2022-12-24] MEDS: MELATONIN 5 MG TABLET PO SCH (20:24)
[2022-12-25 00:37] VITALS: BP 122/76
[2022-12-25] MEDS: MULTIVITAMINS WITH MINERALS, THERAPEUTIC TABLET PO SCH (08:15)
[2022-12-25] MEDS: NALTREXONE HCL 50 MG TABLET PO SCH (08:15)
[2022-12-25] MEDS: CloZAPine 100 MG TABLET PO SCH (20:21)
[2022-12-25] MEDS: DIVALPROEX SODIUM 250 MG ER TABLET PO SCH (20:21)
[2022-12-25] MEDS: DIVALPROEX SODIUM 500 MG ER TABLET PO SCH (20:21)
[2022-12-25] MEDS: MELATONIN 5 MG TABLET PO SCH (20:21)
[2022-12-26] MEDS: NALTREXONE HCL 50 MG TABLET PO SCH (08:24)
[2022-12-26] MEDS: MULTIVITAMINS WITH MINERALS, THERAPEUTIC TABLET PO SCH (08:24)
[2022-12-26] MEDS: CloZAPine 100 MG TABLET PO SCH (20:25)
[2022-12-26] MEDS: DIVALPROEX SODIUM 500 MG ER TABLET PO SCH (20:26)
[2022-12-26] MEDS: DIVALPROEX SODIUM 250 MG ER TABLET PO SCH (20:27)
[2022-12-26] MEDS: MELATONIN 5 MG TABLET PO SCH (20:27)
[2022-12-27] MEDS: OLANZapine 5 MG RAPDIS TABLET PO PRN (10:24)
[2022-12-27] MEDS: NALTREXONE HCL 50 MG TABLET PO SCH (10:24)
[2022-12-27] MEDS: MULTIVITAMINS WITH MINERALS, THERAPEUTIC TABLET PO SCH (10:24)
[2022-12-27 10:50] VITALS: BP 123/80
[2022-12-27 11:05] VITALS: BP 125/78
[2022-12-27] MEDS: MELATONIN 5 MG TABLET PO SCH (20:52)
[2022-12-27] MEDS: DIVALPROEX SODIUM 250 MG ER TABLET PO SCH (20:53)
[2022-12-27] MEDS: CloZAPine 100 MG TABLET PO SCH (20:53)
[2022-12-27] MEDS: DIVALPROEX SODIUM 500 MG ER TABLET PO SCH (20:53)
[2022-12-27 21:22] VITALS: BP 103/71
[2022-12-28] MEDS: MULTIVITAMINS WITH MINERALS, THERAPEUTIC TABLET PO SCH (08:48)
[2022-12-28] MEDS: NALTREXONE HCL 50 MG TABLET PO SCH (08:48)
[2022-12-28] MEDS: DIVALPROEX SODIUM 500 MG ER TABLET PO SCH (20:14)
[2022-12-28] MEDS: DIVALPROEX SODIUM 250 MG ER TABLET PO SCH (20:15)
[2022-12-28] MEDS: CloZAPine 100 MG TABLET PO SCH (20:15)
[2022-12-28] MEDS: MELATONIN 5 MG TABLET PO SCH (20:15)
[2022-12-29] MEDS: NALTREXONE HCL 50 MG TABLET PO SCH (08:33)
[2022-12-29] MEDS: MULTIVITAMINS WITH MINERALS, THERAPEUTIC TABLET PO SCH (08:33)
[2022-12-29] MEDS: MELATONIN 5 MG TABLET PO SCH (20:34)
[2022-12-29] MEDS: DIVALPROEX SODIUM 250 MG ER TABLET PO SCH (20:34)
[2022-12-29] MEDS: DIVALPROEX SODIUM 500 MG ER TABLET PO SCH (20:34)
[2022-12-29] MEDS: CloZAPine 100 MG TABLET PO SCH (20:36)
[2022-12-30 08:32] VITALS: BP 116/79
[2022-12-30] MEDS: NALTREXONE HCL 50 MG TABLET PO SCH (08:46)
[2022-12-30] MEDS: MULTIVITAMINS WITH MINERALS, THERAPEUTIC TABLET PO SCH (08:46)
[2022-12-30] MEDS: DIVALPROEX SODIUM 500 MG ER TABLET PO SCH (20:43)
[2022-12-30] MEDS: DIVALPROEX SODIUM 250 MG ER TABLET PO SCH (20:43)
[2022-12-30] MEDS: MELATONIN 5 MG TABLET PO SCH (20:43)
[2022-12-30] MEDS: CloZAPine 100 MG TABLET PO SCH (20:44)
[2022-12-31] MEDS: NALTREXONE HCL 50 MG TABLET PO SCH (10:04)
[2022-12-31] MEDS: MULTIVITAMINS WITH MINERALS, THERAPEUTIC TABLET PO SCH (10:04)
[2022-12-31] MEDS: CloZAPine 100 MG TABLET PO SCH (20:13)
[2022-12-31] MEDS: DIVALPROEX SODIUM 500 MG ER TABLET PO SCH (20:14)
[2022-12-31] MEDS: MELATONIN 5 MG TABLET PO SCH (20:14)
[2022-12-31] MEDS: DIVALPROEX SODIUM 250 MG ER TABLET PO SCH (20:14)
[2023-01-01 08:30] VITALS: BP 119/74
[2023-01-01] MEDS: MULTIVITAMINS WITH MINERALS, THERAPEUTIC TABLET PO SCH (08:49)
[2023-01-01] MEDS: NALTREXONE HCL 50 MG TABLET PO SCH (08:49)
[2023-01-01] MEDS: GABAPENTIN 300 MG CAPSULE PO PRN (12:55)
[2023-01-01] MEDS: MELATONIN 5 MG TABLET PO SCH (20:07)
[2023-01-01] MEDS: CloZAPine 100 MG TABLET PO SCH (20:08)
[2023-01-01] MEDS: DIVALPROEX SODIUM 500 MG ER TABLET PO SCH (20:08)
[2023-01-01] MEDS: DIVALPROEX SODIUM 250 MG ER TABLET PO SCH (20:08)
[2023-01-02 00:21] VITALS: BP 137/80
[2023-01-02 07:06] LABS: BASOPHILS % (AUTO) 0.5 % (0.0-2.0); EOSINOPHILS % (AUTO) 0.1 % (1.0-6.0); HEMATOCRIT 40.2 % (36-46); HEMOGLOBIN 13.4 g/dL (12.0-16.0); LYMPHOCYTES % (AUTO) 27.9 % (22.0-44.0); MEAN CORPUSCULAR HEMOGLOBIN 28.3 pg (26.0-34.0); MEAN CORPUSCULAR HGB CONC 33.2 G/dL (31.0-37.0); MEAN CORPUSCULAR VOLUME 85 fL (80-100); MONOCYTES % (AUTO) 13.7 % (2.0-9.0); NEUTROPHILS # (AUTO) 4.1 K/uL (1.8-7.7); NEUTROPHILS % (AUTO) 57.8 % (40.0-70.0); PLATELET COUNT (AUTO) 236 K/uL (150-450); RED BLOOD CELL COUNT(AUTO) 4.71 MIL/uL (4.00-5.20); RED CELL DISTRIBUTION WIDTH 16.9 % (11.5-14.5)
[2023-01-02 08:41] VITALS: BP 120/79
[2023-01-02] MEDS: NALTREXONE HCL 50 MG TABLET PO SCH (09:43)
[2023-01-02] MEDS: MULTIVITAMINS WITH MINERALS, THERAPEUTIC TABLET PO SCH (09:43)
[2023-01-02 20:06] LABS: GLUCOMETER DEV NAME(LOC) POC.BV
[2023-01-02] MEDS: MELATONIN 5 MG TABLET PO SCH (21:00)
[2023-01-02] MEDS: DIVALPROEX SODIUM 500 MG ER TABLET PO SCH (21:06)
[2023-01-02] MEDS: DIVALPROEX SODIUM 250 MG ER TABLET PO SCH (21:06)
[2023-01-02] MEDS: CloZAPine 100 MG TABLET PO SCH (21:08)
[2023-01-03] MEDS: MULTIVITAMINS WITH MINERALS, THERAPEUTIC TABLET PO SCH (08:18)
[2023-01-03] MEDS: NALTREXONE HCL 50 MG TABLET PO SCH (08:18)
[2023-01-03 08:28] VITALS: BP 119/78
[2023-01-03] MEDS: GABAPENTIN 300 MG CAPSULE PO PRN (09:10)
[2023-01-03] MEDS: DIVALPROEX SODIUM 500 MG ER TABLET PO SCH (20:48)
[2023-01-03] MEDS: DIVALPROEX SODIUM 250 MG ER TABLET PO SCH (20:49)
[2023-01-03] MEDS: CloZAPine 100 MG TABLET PO SCH (20:49)
[2023-01-03] MEDS: MELATONIN 5 MG TABLET PO SCH (20:49)
[2023-01-04] MEDS: MULTIVITAMINS WITH MINERALS, THERAPEUTIC TABLET PO SCH (08:16)
[2023-01-04] MEDS: NALTREXONE HCL 50 MG TABLET PO SCH (08:16)
[2023-01-04 13:42] VITALS: BP 111/68
[2023-01-04] MEDS: CloZAPine 100 MG TABLET PO SCH (20:27)
[2023-01-04] MEDS: DIVALPROEX SODIUM 250 MG ER TABLET PO SCH (20:28)
[2023-01-04] MEDS: MELATONIN 5 MG TABLET PO SCH (20:28)
[2023-01-04] MEDS: DIVALPROEX SODIUM 500 MG ER TABLET PO SCH (20:28)
[2023-01-05 08:26] VITALS: BP 110/65
[2023-01-05] MEDS: MULTIVITAMINS WITH MINERALS, THERAPEUTIC TABLET PO SCH (10:00)
[2023-01-05] MEDS: GABAPENTIN 300 MG CAPSULE PO PRN (10:01)
[2023-01-05] MEDS: NALTREXONE HCL 50 MG TABLET PO SCH (10:02)
[2023-01-05] MEDS: OLANZapine 5 MG RAPDIS TABLET PO PRN (10:03)
[2023-01-05] MEDS ORDERED: DIVA500T69 PO (16:47)
[2023-01-05] MEDS ORDERED: CLOZ100T11 PO (16:47)
[2023-01-05] MEDS ORDERED: NALT50TA PO (16:47)
[2023-01-05] MEDS ORDERED: MELA5TAB40 PO (16:47)
== END 2023-01-05 00:25 | disposition short-term general hospital (02) | DRG 885 ==
LOC: EMS 11:53 → EDSEX 11:53 → B3A 23:00 → EDBD 11-09 00:25 → B3A 11-09 00:25
PROVIDERS: ADMIT Psychiatry & Neurology Psychiatry; ATTEND Psychiatry & Neurology Psychiatry
DX: F25.8 Other schizoaffective disorders (principal); E87.1 Hypo-osmolality and hyponatremia; F84.0 Autistic disorder; E87.6 Hypokalemia; Z20.822 Contact with and (suspected) exposure to COVID-19; Z59.02 Unsheltered homelessness; Z63.9 Problem related to primary support group, unspecified; Z65.3 Problems related to other legal circumstances; Z79.899 Other long term (current) drug therapy
CPT/HCPCS: 80053; 80159; 80164; 80307; 81003; 84703; 85025; 87081; 87086; 87186; 99285; G0480; J1200; J1630; J2060; Q9967

== ENCOUNTER 2023-01-05 09:13 | Inpatient (IN) | payer MEDICARE, OTHER ==
[~2023-01-05] VITALS: Ht 167.6 cm; Wt 81.9 kg
[2023-01-05 10:21] LABS: BASOPHILS % (AUTO) 0.6 % (0.0-2.0); EOSINOPHILS % (AUTO) 0 % (1.0-6.0); HEMATOCRIT 45.1 % (36-46); HEMOGLOBIN 14.7 g/dL (12.0-16.0); LYMPHOCYTES # (AUTO) 2.1 K/uL (1.0-4.8); LYMPHOCYTES % (AUTO) 21.7 % (22.0-44.0); MEAN CORPUSCULAR HEMOGLOBIN 28.2 pg (26.0-34.0); MEAN CORPUSCULAR HGB CONC 32.7 G/dL (31.0-37.0); MEAN CORPUSCULAR VOLUME 86 fL (80-100); MONOCYTES # (AUTO) 0.7 K/uL (0.1-1.0); MONOCYTES % (AUTO) 7.4 % (2.0-9.0); NEUTROPHILS # (AUTO) 6.9 K/uL (1.8-7.7); NEUTROPHILS % (AUTO) 70.3 % (40.0-70.0); PLATELET COUNT (AUTO) 273 K/uL (150-450); RED BLOOD CELL COUNT(AUTO) 5.23 MIL/uL (4.00-5.20); RED CELL DISTRIBUTION WIDTH 17.3 % (11.5-14.5)
[2023-01-05 10:35] LABS: ANION GAP 7 mmol/L (8-16); CALCIUM, TOTAL 9.6 mg/dL (8.8-10.5); CARBON DIOXIDE 32 mmol/L (22-29); CHLORIDE 102 mmol/L (98-107); CREATININE 0.81 mg/dL (0.60-1.30); GLOMERULAR FILTR. RATE CALC > 60 mL/min (>60); GLUCOSE,RANDOM 99 mg/dL (70-110); POTASSIUM 3.9 mmol/L (3.5-5.1); SODIUM SERUM 141 mmol/L (136-145); UREA NITROGEN, BLOOD 18 mg/dL (7-18)
[2023-01-05 10:46] LABS: ALANINE AMINOTRANSFERASE 36 U/L (12-78); ALBUMIN 2.8 g/dL (3.4-5.0); ALKALINE PHOSPHATASE 207 U/L (46-116); ASPARTATE AMINOTRANSFERASE 33 U/L (15-37); BILIRUBIN,TOTAL 0.2 mg/dL (0.1-1.0); C-REACTIVE PROTEIN QUANT 5.33 mg/dL (0.00-0.30); HCG,QUANTITATIVE < 1 mIU/mL (0-6); TOTAL PROTEIN, SERUM 8.7 g/dL (6.4-8.2)
[2023-01-05] MEDS ORDERED: LORazepam 2 MG/ML VIAL IVP ONE (11:30)
[2023-01-05] MEDS ORDERED: DiphenhydrAMINE HCL 50 MG/ML VIAL IVP ONE (11:30)
[2023-01-05] MEDS ORDERED: HALOPERIDOL LACTATE 5 MG/ML VIAL IVP ONE (11:30)
[2023-01-05 11:45] LABS: ERYTHROCYTE SEDIMENTATION RATE 40 MM/HR (0-20)
[2023-01-05] MEDS ORDERED: CLINDAMYCIN 600 MG/D5% WATER 50 ML IV ONE (14:45)
[2023-01-05] MEDS ORDERED: VANCOMYCIN HCL 1.25 GM in DEXTROSE 5%-WATER 250 ML IV ONE (14:45)
[2023-01-05] MEDS ORDERED: ONDANSETRON HCL 4 MG/2 ML VIAL IVP PRN (15:00)
[2023-01-05] MEDS ORDERED: ACETAMINOPHEN 325 MG TABLET PO PRN (15:00)
[2023-01-05] MEDS ORDERED: MAGNESIUM HYDROXIDE SUSPENSION 30 ML UDCUP PO PRN (15:00)
[2023-01-05] MEDS ORDERED: ZOLPIDEM TARTRATE 5 MG TABLET PO PRN (15:00)
[2023-01-05] MEDS ORDERED: BISACODYL 10 MG RECTAL RECTAL SUPPOSITORY PR PRN (15:00)
[2023-01-05] MEDS: HEPARIN SODIUM,PORCINE 5,000 UNITS/ML VIAL SQ SCH ×2 (15:21→23:45)
[2023-01-05 15:42] LABS: COVID AG,FIA SOURCE NASOPHARYNGEAL
[2023-01-05] MEDS ORDERED: DIVA500T69 PO (16:47)
[2023-01-05] MEDS ORDERED: CLOZ100T11 PO (16:47)
[2023-01-05] MEDS ORDERED: MELA5TAB40 PO (16:47)
[2023-01-05] MEDS ORDERED: NALT50TA PO (16:47)
[2023-01-05] MEDS: DOCUSATE SODIUM 100 MG CAPSULE PO SCH (21:14)
[2023-01-05 21:35] VITALS: BP 115/62
[2023-01-05] MEDS ORDERED: VANCOMYCIN HCL 1 GM in DEXTROSE 5%-WATER 250 ML IV ONE (23:00)
[2023-01-05] MEDS ORDERED: SODIUM CHLORIDE 0.9% 250 ML IV ONE (23:08)
[2023-01-05] MEDS: CLINDAMYCIN 600 MG/D5% WATER 50 ML IV SCH (23:14)
[2023-01-06] MEDS: CLINDAMYCIN 600 MG/D5% WATER 50 ML IV SCH ×3 (06:07→22:54)
[2023-01-06] MEDS: HEPARIN SODIUM,PORCINE 5,000 UNITS/ML VIAL SQ SCH ×3 (08:00→15:55)
[2023-01-06] MEDS: VANCOMYCIN HCL 750 MG in DEXTROSE 5%-WATER 250 ML IV SCH ×3 (08:39→23:56)
[2023-01-06] MEDS ORDERED: OLANZapine 5 MG RAPDIS TABLET PO PRN (10:00)
[2023-01-06] MEDS: PANTOPRAZOLE SODIUM 40 MG DR TABLET PO SCH (11:22)
[2023-01-06] MEDS: DOCUSATE SODIUM 100 MG CAPSULE PO SCH ×2 (11:22→21:00)
[2023-01-06 20:00] VITALS: BP 126/55
[2023-01-06] MEDS: DIVALPROEX SODIUM 500 MG ER TABLET PO SCH (21:00)
[2023-01-06] MEDS: CloZAPine 100 MG TABLET PO SCH (21:00)
[2023-01-06] MEDS: MELATONIN 5 MG TABLET PO SCH (21:00)
[2023-01-06] MEDS ORDERED: SODIUM CHLORIDE 0.9% 500 ML IV ONE (23:53)
[2023-01-07 03:00] VITALS: BP 103/42
[2023-01-07] MEDS: CloZAPine 100 MG TABLET PO SCH ×2 (04:02→20:36)
[2023-01-07] MEDS: MELATONIN 5 MG TABLET PO SCH ×2 (04:02→20:37)
[2023-01-07] MEDS: DIVALPROEX SODIUM 500 MG ER TABLET PO SCH ×2 (04:02→20:36)
[2023-01-07] MEDS: CLINDAMYCIN 600 MG/D5% WATER 50 ML IV SCH ×3 (05:56→23:00)
[2023-01-07] MEDS: VANCOMYCIN HCL 750 MG in DEXTROSE 5%-WATER 250 ML IV SCH ×2 (07:54→16:00)
[2023-01-07 08:00] VITALS: BP 104/54
[2023-01-07] MEDS: HEPARIN SODIUM,PORCINE 5,000 UNITS/ML VIAL SQ SCH ×3 (08:00→16:00)
[2023-01-07] MEDS: PANTOPRAZOLE SODIUM 40 MG DR TABLET PO SCH (09:00)
[2023-01-07] MEDS: DOCUSATE SODIUM 100 MG CAPSULE PO SCH ×2 (09:00→20:38)
[2023-01-07 16:01] VITALS: BP 104/53
[2023-01-07 19:20] VITALS: BP 109/63
[2023-01-08 04:28] VITALS: BP 90/54
[2023-01-08] MEDS: CLINDAMYCIN 600 MG/D5% WATER 50 ML IV SCH ×3 (07:00→23:00)
[2023-01-08] MEDS: VANCOMYCIN HCL 750 MG in DEXTROSE 5%-WATER 250 ML IV SCH ×4 (08:00→16:00)
[2023-01-08] MEDS: HEPARIN SODIUM,PORCINE 5,000 UNITS/ML VIAL SQ SCH ×3 (08:00→16:00)
[2023-01-08 08:01] VITALS: BP 125/76
[2023-01-08] MEDS: DOCUSATE SODIUM 100 MG CAPSULE PO SCH ×3 (09:00→20:20)
[2023-01-08] MEDS: PANTOPRAZOLE SODIUM 40 MG DR TABLET PO SCH ×2 (09:00→10:48)
[2023-01-08 11:15] LABS: BASOPHILS % (AUTO) 0.8 % (0.0-2.0); EOSINOPHILS % (AUTO) 0.1 % (1.0-6.0); HEMOGLOBIN 12.3 g/dL (12.0-16.0); LYMPHOCYTES # (AUTO) 2.8 K/uL (1.0-4.8); LYMPHOCYTES % (AUTO) 37.1 % (22.0-44.0); MEAN CORPUSCULAR HEMOGLOBIN 27.5 pg (26.0-34.0); MEAN CORPUSCULAR HGB CONC 32.3 G/dL (31.0-37.0); MEAN CORPUSCULAR VOLUME 85 fL (80-100); MONOCYTES # (AUTO) 0.6 K/uL (0.1-1.0); MONOCYTES % (AUTO) 8.2 % (2.0-9.0); NEUTROPHILS # (AUTO) 4.1 K/uL (1.8-7.7); NEUTROPHILS % (AUTO) 53.8 % (40.0-70.0); PLATELET COUNT (AUTO) 221 K/uL (150-450); RED BLOOD CELL COUNT(AUTO) 4.47 MIL/uL (4.00-5.20); RED CELL DISTRIBUTION WIDTH 17.3 % (11.5-14.5)
[2023-01-08 11:23] LABS: ANION GAP 5 mmol/L (8-16); CALCIUM, TOTAL 8.8 mg/dL (8.8-10.5); CARBON DIOXIDE 31 mmol/L (22-29); CHLORIDE 105 mmol/L (98-107); CREATININE 0.82 mg/dL (0.60-1.30); GLOMERULAR FILTR. RATE CALC > 60 mL/min (>60); GLUCOSE,RANDOM 143 mg/dL (70-110); POTASSIUM 3.9 mmol/L (3.5-5.1); SODIUM SERUM 141 mmol/L (136-145); UREA NITROGEN, BLOOD 11 mg/dL (7-18); VANCOMYCIN,RANDOM 7.4 mcg/mL (25.0-50.0)
[2023-01-08] MEDS ORDERED: PIPERONYL BUTOXIDE/PYRETHRINS 120 ML SHAMPOO TP ONE (17:00)
[2023-01-08 19:46] VITALS: BP 132/72
[2023-01-08] MEDS: CLINDAMYCIN HCL 150 MG CAPSULE PO SCH (20:17)
[2023-01-08] MEDS: CloZAPine 100 MG TABLET PO SCH (20:18)
[2023-01-08] MEDS: DIVALPROEX SODIUM 500 MG ER TABLET PO SCH (20:20)
[2023-01-08] MEDS: DOXYCYCLINE HYCLATE 100 MG TABLET PO SCH (20:21)
[2023-01-08] MEDS: MELATONIN 5 MG TABLET PO SCH (20:21)
[2023-01-09] MEDS: CLINDAMYCIN 600 MG/D5% WATER 50 ML IV SCH (06:36)
[2023-01-09] MEDS: VANCOMYCIN HCL 750 MG in DEXTROSE 5%-WATER 250 ML IV SCH ×3 (08:00)
[2023-01-09] MEDS: DOXYCYCLINE HYCLATE 100 MG TABLET PO SCH ×2 (09:21→20:02)
[2023-01-09] MEDS: DOCUSATE SODIUM 100 MG CAPSULE PO SCH ×2 (09:21→20:02)
[2023-01-09] MEDS: HEPARIN SODIUM,PORCINE 5,000 UNITS/ML VIAL SQ SCH ×4 (09:21→23:27)
[2023-01-09] MEDS: PANTOPRAZOLE SODIUM 40 MG DR TABLET PO SCH (09:21)
[2023-01-09] MEDS: CLINDAMYCIN HCL 150 MG CAPSULE PO SCH ×4 (09:21→20:06)
[2023-01-09 09:26] VITALS: BP 118/72
[2023-01-09 16:53] VITALS: BP 121/76
[2023-01-09 19:30] VITALS: BP 106/62
[2023-01-09] MEDS: DIVALPROEX SODIUM 500 MG ER TABLET PO SCH (20:03)
[2023-01-09] MEDS: CloZAPine 100 MG TABLET PO SCH (20:06)
[2023-01-09] MEDS: MELATONIN 5 MG TABLET PO SCH (20:07)
[2023-01-10] MEDS: HEPARIN SODIUM,PORCINE 5,000 UNITS/ML VIAL SQ SCH ×2 (08:00→16:00)
[2023-01-10] MEDS: CLINDAMYCIN HCL 150 MG CAPSULE PO SCH ×4 (08:40→21:12)
[2023-01-10] MEDS: DOXYCYCLINE HYCLATE 100 MG TABLET PO SCH ×2 (08:40→21:12)
[2023-01-10] MEDS: DOCUSATE SODIUM 100 MG CAPSULE PO SCH ×2 (08:40→21:12)
[2023-01-10] MEDS: PANTOPRAZOLE SODIUM 40 MG DR TABLET PO SCH (08:41)
[2023-01-10 10:17] VITALS: BP 118/72
[2023-01-10] MEDS ORDERED: PIPERONYL BUTOXIDE/PYRETHRINS 120 ML SHAMPOO TP ONE (14:30)
[2023-01-10 15:34] VITALS: BP 136/74
[2023-01-10] MEDS: LORazepam 2 MG TABLET PO PRN (16:19)
[2023-01-10 20:42] VITALS: BP 121/70
[2023-01-10] MEDS: MELATONIN 5 MG TABLET PO SCH (21:12)
[2023-01-10] MEDS: DIVALPROEX SODIUM 500 MG ER TABLET PO SCH (21:13)
[2023-01-10] MEDS: CloZAPine 100 MG TABLET PO SCH (21:26)
[2023-01-11] MEDS: LORazepam 2 MG TABLET PO PRN ×2 (03:39→13:41)
[2023-01-11 04:03] VITALS: BP 123/85
[2023-01-11] MEDS: HEPARIN SODIUM,PORCINE 5,000 UNITS/ML VIAL SQ SCH ×3 (08:00→16:00)
[2023-01-11 08:01] VITALS: BP 118/52
[2023-01-11] MEDS: CLINDAMYCIN HCL 150 MG CAPSULE PO SCH ×4 (09:48→20:10)
[2023-01-11] MEDS: DOXYCYCLINE HYCLATE 100 MG TABLET PO SCH ×2 (09:48→20:09)
[2023-01-11] MEDS: DOCUSATE SODIUM 100 MG CAPSULE PO SCH ×2 (09:48→20:09)
[2023-01-11] MEDS: PANTOPRAZOLE SODIUM 40 MG DR TABLET PO SCH (09:48)
[2023-01-11 17:29] VITALS: BP 128/72
[2023-01-11 17:29] LABS: COVID AG,FIA SOURCE NASAL SWAB
[2023-01-11] MEDS ORDERED: CLIN-26 PO (17:51)
[2023-01-11] MEDS ORDERED: CLOZ100T68 PO (17:52)
[2023-01-11] MEDS ORDERED: DOXY-354 PO (17:53)
[2023-01-11] MEDS ORDERED: DIVA500T53 PO (17:53)
[2023-01-11] MEDS ORDERED: DOCU-385 PO (17:53)
[2023-01-11] MEDS ORDERED: MELA5TAB40 PO (17:54)
[2023-01-11] MEDS ORDERED: PANT-31 PO (17:54)
[2023-01-11] MEDS ORDERED: BISA10SU11 PR (17:55)
[2023-01-11] MEDS ORDERED: ACET-2247 PO (17:55)
[2023-01-11] MEDS ORDERED: LORA-1001 PO (17:56)
[2023-01-11] MEDS ORDERED: OLAN5TAB94 PO (17:57)
[2023-01-11 19:45] VITALS: BP 121/74
[2023-01-11] MEDS: MELATONIN 5 MG TABLET PO SCH (20:09)
[2023-01-11] MEDS: CloZAPine 100 MG TABLET PO SCH (20:09)
[2023-01-11] MEDS: DIVALPROEX SODIUM 500 MG ER TABLET PO SCH (20:10)
== END 2023-01-11 21:11 | DRG 603 ==
LOC: EMS 09:14 → AHU 16:34 → 6S 20:00
PROVIDERS: ADMIT Internal Medicine; ATTEND Internal Medicine
DX: L03.211 Cellulitis of face (principal); L03.213 Periorbital cellulitis; H10.89 Other conjunctivitis; F20.9 Schizophrenia, unspecified; Z20.822 Contact with and (suspected) exposure to COVID-19; F17.200 Nicotine dependence, unspecified, uncomplicated; H01.006 Unspecified blepharitis left eye, unspecified eyelid; B85.2 Pediculosis, unspecified; J44.9 Chronic obstructive pulmonary disease, unspecified; Z59.9 Problem related to housing and economic circumstances, unspecified; Z55.9 Problems related to education and literacy, unspecified; Z63.9 Problem related to primary support group, unspecified; Z65.3 Problems related to other legal circumstances; Z81.8 Family history of other mental and behavioral disorders; Z91.51 Personal history of suicidal behavior; Z59.02 Unsheltered homelessness; Z79.899 Other long term (current) drug therapy
CPT/HCPCS: 70481; 80048; 80053; 80202; 84702; 85025; 85651; 86140; 87040; 99285; J1200; J1630; J1644; J2060; J3370; J3490; J7040; J7050; J7060; Q9967

== ENCOUNTER 2023-01-11 08:30 | Inpatient (IN) | payer MEDICARE, MEDICAID ==
[~2023-01-11] VITALS: Ht 157.5 cm; Wt 82.9 kg
[~2023-01-11 08:30] MED LIST: CLOZ100T11 PO; DIVA500T69 PO; MELA5TAB40 PO; NALT50TA PO
[2023-01-11] MEDS ORDERED: GABAPENTIN 300 MG CAPSULE PO PRN (12:00)
[2023-01-11] MEDS ORDERED: GuaiFENesin/D-METHORPHAN [SUGAR-FREE] 200-20MG/10 ML SYRUP UDCUP PO PRN (12:00)
[2023-01-11] MEDS ORDERED: MAG HYDROX/AL HYDROX/SIMETH ES 30 ML SUSPENSION UDCUP PO PRN (12:00)
[2023-01-11] MEDS ORDERED: ZOLPIDEM TARTRATE 10 MG TABLET PO PRN (12:00)
[2023-01-11] MEDS ORDERED: OLANZapine 5 MG RAPDIS TABLET PO PRN (12:00)
[2023-01-11] MEDS ORDERED: PROMETHAZINE HCL 25 MG TABLET PO PRN (12:00)
[2023-01-11] MEDS ORDERED: LOPERAMIDE HCL 2 MG CAPSULE PO PRN (12:00)
[2023-01-11] MEDS ORDERED: MAGNESIUM HYDROXIDE SUSPENSION 30 ML UDCUP PO PRN (12:00)
[2023-01-11] MEDS ORDERED: ACETAMINOPHEN 325 MG TABLET PO PRN (12:00)
[2023-01-11] MEDS ORDERED: HydrOXYzine PAMOATE 50 MG CAPSULE PO PRN (12:00)
[2023-01-11] MEDS ORDERED: CLIN-26 PO (17:51)
[2023-01-11] MEDS ORDERED: CLOZ100T68 PO (17:52)
[2023-01-11] MEDS ORDERED: DIVA500T53 PO (17:53)
[2023-01-11] MEDS ORDERED: DOXY-354 PO (17:53)
[2023-01-11] MEDS ORDERED: DOCU-385 PO (17:53)
[2023-01-11] MEDS ORDERED: MELA5TAB40 PO (17:54)
[2023-01-11] MEDS ORDERED: PANT-31 PO (17:54)
[2023-01-11] MEDS ORDERED: ACET-2247 PO (17:55)
[2023-01-11] MEDS ORDERED: BISA10SU11 PR (17:55)
[2023-01-11] MEDS ORDERED: LORA-1001 PO (17:56)
[2023-01-11] MEDS ORDERED: OLAN5TAB94 PO (17:57)
[2023-01-11] MEDS ORDERED: CloZAPine 100 MG TABLET PO SCH (21:00)
[2023-01-11 21:45] VITALS: BP 137/82
[2023-01-11] MEDS: DIVALPROEX SODIUM 500 MG ER TABLET PO SCH (22:28)
[2023-01-11] MEDS: MELATONIN 5 MG TABLET PO SCH (22:29)
[2023-01-12] MEDS ORDERED: INFLUENZA VIRUS VACCINE QVS 2022-23 (6MO+)/PF 60 MCG/0.5 ML SYRINGE IM. ONE (02:15)
[2023-01-12] MEDS ORDERED: FOLIC ACID 1 MG TABLET PO SCH (09:00)
[2023-01-12] MEDS ORDERED: NALTREXONE HCL 50 MG TABLET PO SCH (09:00)
[2023-01-12] MEDS: CLINDAMYCIN HCL 150 MG CAPSULE PO SCH ×4 (09:00→21:00)
[2023-01-12] MEDS ORDERED: MULTIVITAMINS WITH MINERALS, THERAPEUTIC TABLET PO SCH (09:00)
[2023-01-12] MEDS ORDERED: OMEGA-3/DHA/EPA/FISH OIL 1,000 MG CAPSULE PO SCH (09:00)
[2023-01-12] MEDS: THIAMINE 100 MG TABLET PO SCH ×2 (09:46→17:00)
[2023-01-12] MEDS: DOXYCYCLINE HYCLATE 100 MG TABLET PO SCH ×2 (09:46→17:00)
[2023-01-12] MEDS: CloZAPine 100 MG TABLET PO SCH ×2 (13:48→17:00)
[2023-01-12 20:31] VITALS: BP 134/88
[2023-01-12] MEDS ORDERED: CloZAPine 100 MG TABLET PO SCH (21:00)
[2023-01-12] MEDS: MELATONIN 5 MG TABLET PO SCH (21:00)
[2023-01-12] MEDS: DIVALPROEX SODIUM 500 MG ER TABLET PO SCH (21:00)
[2023-01-13] MEDS ORDERED: DIVA500T69 PO (10:31)
[2023-01-13] MEDS ORDERED: CLOZ100T11 PO ×2 (10:31)
[2023-01-13] MEDS ORDERED: MELA5TAB40 PO (10:31)
[2023-01-13] MEDS ORDERED: OMEG-135 PO (10:31)
[2023-01-13] MEDS ORDERED: NALT50TA PO (10:31)
== END 2023-01-13 10:27 | disposition short-term general hospital (02) | DRG 885 ==
LOC: B3A 21:37
PROVIDERS: ADMIT Psychiatry & Neurology Psychiatry; ATTEND Psychiatry & Neurology Psychiatry
DX: F20.9 Schizophrenia, unspecified (principal); L03.211 Cellulitis of face; Z91.199 Patient's noncompliance with other medical treatment and regimen due to unspecified reason; Z91.014 Allergy to mammalian meats; Z55.9 Problems related to education and literacy, unspecified; Z59.9 Problem related to housing and economic circumstances, unspecified; Z63.9 Problem related to primary support group, unspecified; Z65.3 Problems related to other legal circumstances
CPT/HCPCS: 80159; 80164; 87081; Q9967

== ENCOUNTER 2023-01-12 23:12 | Inpatient (IN) | payer MEDICARE, OTHER ==
[~2023-01-12] VITALS: Ht 162.6 cm; Wt 80.5 kg
[~2023-01-12 23:12] MED LIST changes: +ACET-2247 PO; +BISA10SU11 PR; +CLIN-26 PO; -CLOZ100T11 PO; +CLOZ100T68 PO; +DIVA500T53 PO; -DIVA500T69 PO; +DOCU-385 PO; +DOXY-354 PO; +LORA-1001 PO; -NALT50TA PO; +OLAN5TAB94 PO; +PANT-31 PO
[2023-01-13] MEDS ORDERED: CLINDAMYCIN 600 MG/D5% WATER 50 ML IV ONE (00:15)
[2023-01-13 00:37] LABS: BASOPHILS % (AUTO) 0.9 % (0.0-2.0); EOSINOPHILS % (AUTO) 0.1 % (1.0-6.0); HEMATOCRIT 40.3 % (36-46); HEMOGLOBIN 13.3 g/dL (12.0-16.0); LYMPHOCYTES # (AUTO) 2.8 K/uL (1.0-4.8); LYMPHOCYTES % (AUTO) 14.1 % (22.0-44.0); MEAN CORPUSCULAR HGB CONC 32.9 G/dL (31.0-37.0); MEAN CORPUSCULAR VOLUME 85 fL (80-100); MONOCYTES # (AUTO) 1.5 K/uL (0.1-1.0); MONOCYTES % (AUTO) 7.7 % (2.0-9.0); NEUTROPHILS # (AUTO) 15.3 K/uL (1.8-7.7); NEUTROPHILS % (AUTO) 77.2 % (40.0-70.0); PLATELET COUNT (AUTO) 301 K/uL (150-450); RED BLOOD CELL COUNT(AUTO) 4.74 MIL/uL (4.00-5.20); RED CELL DISTRIBUTION WIDTH 17.8 % (11.5-14.5)
[2023-01-13 00:57] LABS: ANION GAP 4 mmol/L (8-16); CALCIUM, TOTAL 9.2 mg/dL (8.8-10.5); CARBON DIOXIDE 32 mmol/L (22-29); CHLORIDE 103 mmol/L (98-107); CREATININE 0.88 mg/dL (0.60-1.30); GLOMERULAR FILTR. RATE CALC > 60 mL/min (>60); GLUCOSE,RANDOM 106 mg/dL (70-110); POTASSIUM 4.6 mmol/L (3.5-5.1); SODIUM SERUM 139 mmol/L (136-145); UREA NITROGEN, BLOOD 20 mg/dL (7-18)
[2023-01-13 01:01] LABS: ALANINE AMINOTRANSFERASE 26 U/L (12-78); ALBUMIN 2.6 g/dL (3.4-5.0); ALKALINE PHOSPHATASE 193 U/L (46-116); ASPARTATE AMINOTRANSFERASE 19 U/L (15-37); BILIRUBIN,TOTAL 0.2 mg/dL (0.1-1.0); TOTAL PROTEIN, SERUM 7.8 g/dL (6.4-8.2)
[2023-01-13 06:35] LABS: COVID AG,FIA SOURCE NASAL SWAB
[2023-01-13 06:41] LABS: BASOPHILS % (AUTO) 0.5 % (0.0-2.0); EOSINOPHILS % (AUTO) 0 % (1.0-6.0); HEMATOCRIT 40.4 % (36-46); HEMOGLOBIN 13.2 g/dL (12.0-16.0); LYMPHOCYTES # (AUTO) 3.5 K/uL (1.0-4.8); LYMPHOCYTES % (AUTO) 20.7 % (22.0-44.0); MEAN CORPUSCULAR HEMOGLOBIN 27.7 pg (26.0-34.0); MEAN CORPUSCULAR HGB CONC 32.7 G/dL (31.0-37.0); MEAN CORPUSCULAR VOLUME 85 fL (80-100); MONOCYTES # (AUTO) 1.4 K/uL (0.1-1.0); MONOCYTES % (AUTO) 8.1 % (2.0-9.0); NEUTROPHILS # (AUTO) 12.1 K/uL (1.8-7.7); NEUTROPHILS % (AUTO) 70.7 % (40.0-70.0); PLATELET COUNT (AUTO) 294 K/uL (150-450); RED BLOOD CELL COUNT(AUTO) 4.78 MIL/uL (4.00-5.20); RED CELL DISTRIBUTION WIDTH 17.8 % (11.5-14.5)
[2023-01-13] MEDS ORDERED: SODIUM CHLORIDE 0.9% 1,000 ML IV ONE (08:15)
[2023-01-13] MEDS ORDERED: ACETAMINOPHEN 325 MG TABLET PO PRN (08:15)
[2023-01-13] MEDS ORDERED: ONDANSETRON HCL 4 MG/2 ML VIAL IVP PRN (08:15)
[2023-01-13 09:10] VITALS: BP 124/65
[2023-01-13] MEDS ORDERED: MELA5TAB40 PO (10:31)
[2023-01-13] MEDS ORDERED: DIVA500T69 PO (10:31)
[2023-01-13] MEDS ORDERED: NALT50TA PO (10:31)
[2023-01-13] MEDS ORDERED: CLOZ100T11 PO ×2 (10:31)
[2023-01-13] MEDS ORDERED: OMEG-135 PO (10:31)
[2023-01-13] MEDS: DOCUSATE SODIUM 100 MG CAPSULE PO SCH ×2 (10:34→19:34)
[2023-01-13] MEDS: FAMOTIDINE 20 MG TABLET PO SCH (10:35)
[2023-01-13] MEDS: CLINDAMYCIN 600 MG/D5% WATER 50 ML IV SCH ×2 (11:43→18:26)
[2023-01-13 15:44] VITALS: BP 114/71
[2023-01-13] MEDS: HEPARIN SODIUM,PORCINE 5,000 UNITS/ML VIAL SQ SCH ×2 (15:54→23:33)
[2023-01-13] MEDS ORDERED: SODIUM CHLORIDE 0.9% 0 ML IV ONE (19:31)
[2023-01-13 20:55] VITALS: BP 112/75
[2023-01-14] MEDS ORDERED: SODIUM CHLORIDE 0.9% 500 ML IV ONE (02:18)
[2023-01-14] MEDS: CLINDAMYCIN 600 MG/D5% WATER 50 ML IV SCH ×3 (02:21→18:40)
[2023-01-14 03:50] VITALS: BP 132/70
[2023-01-14 07:17] VITALS: BP 128/72
[2023-01-14] MEDS: DOCUSATE SODIUM 100 MG CAPSULE PO SCH ×2 (08:41→19:52)
[2023-01-14] MEDS: FAMOTIDINE 20 MG TABLET PO SCH (08:41)
[2023-01-14] MEDS: HEPARIN SODIUM,PORCINE 5,000 UNITS/ML VIAL SQ SCH ×2 (08:41→16:46)
[2023-01-14 15:02] VITALS: BP 132/74
[2023-01-14] MEDS ORDERED: GABAPENTIN 400 MG CAPSULE PO PRN (18:00)
[2023-01-14] MEDS ORDERED: OLANZapine 5 MG TABLET PO PRN (18:00)
[2023-01-14 19:25] VITALS: BP 114/67
[2023-01-14] MEDS: DIVALPROEX SODIUM 500 MG DR TABLET PO SCH (19:52)
[2023-01-14] MEDS: CloZAPine 100 MG TABLET PO SCH (19:52)
[2023-01-14] MEDS: MELATONIN 5 MG TABLET PO SCH (21:14)
[2023-01-15 04:00] VITALS: BP 107/52
[2023-01-15] MEDS: CLINDAMYCIN 600 MG/D5% WATER 50 ML IV SCH ×3 (04:17→19:49)
[2023-01-15 07:00] LABS: BASOPHILS % (AUTO) 1.7 % (0.0-2.0); EOSINOPHILS % (AUTO) 0.1 % (1.0-6.0); HEMATOCRIT 36.6 % (36-46); HEMOGLOBIN 11.9 g/dL (12.0-16.0); LYMPHOCYTES # (AUTO) 3.6 K/uL (1.0-4.8); LYMPHOCYTES % (AUTO) 43.8 % (22.0-44.0); MEAN CORPUSCULAR HEMOGLOBIN 27.6 pg (26.0-34.0); MEAN CORPUSCULAR HGB CONC 32.5 G/dL (31.0-37.0); MEAN CORPUSCULAR VOLUME 85 fL (80-100); MONOCYTES # (AUTO) 0.7 K/uL (0.1-1.0); MONOCYTES % (AUTO) 8.3 % (2.0-9.0); NEUTROPHILS # (AUTO) 3.8 K/uL (1.8-7.7); NEUTROPHILS % (AUTO) 46.1 % (40.0-70.0); PLATELET COUNT (AUTO) 254 K/uL (150-450); RED BLOOD CELL COUNT(AUTO) 4.31 MIL/uL (4.00-5.20); RED CELL DISTRIBUTION WIDTH 18.4 % (11.5-14.5)
[2023-01-15 07:48] VITALS: BP 129/67
[2023-01-15] MEDS ORDERED: PIPERONYL BUTOXIDE/PYRETHRINS 120 ML SHAMPOO TP ONE (09:00)
[2023-01-15] MEDS: HEPARIN SODIUM,PORCINE 5,000 UNITS/ML VIAL SQ SCH ×3 (09:44→17:36)
[2023-01-15] MEDS: FAMOTIDINE 20 MG TABLET PO SCH (09:45)
[2023-01-15] MEDS: NALTREXONE HCL 50 MG TABLET PO SCH (09:45)
[2023-01-15] MEDS: DOCUSATE SODIUM 100 MG CAPSULE PO SCH ×2 (09:46→20:08)
[2023-01-15] MEDS: CloZAPine 25 MG TABLET PO SCH ×3 (09:58→17:36)
[2023-01-15 15:45] VITALS: BP 130/74
[2023-01-15 19:34] VITALS: BP 147/72
[2023-01-15] MEDS: CloZAPine 100 MG TABLET PO SCH (20:09)
[2023-01-15] MEDS: DIVALPROEX SODIUM 500 MG DR TABLET PO SCH (20:09)
[2023-01-15] MEDS: MELATONIN 5 MG TABLET PO SCH (21:04)
[2023-01-16] MEDS: HEPARIN SODIUM,PORCINE 5,000 UNITS/ML VIAL SQ SCH ×4 (00:04→17:49)
[2023-01-16] MEDS: CLINDAMYCIN 600 MG/D5% WATER 50 ML IV SCH ×3 (03:10→19:43)
[2023-01-16] MEDS: CloZAPine 25 MG TABLET PO SCH ×4 (09:00→17:45)
[2023-01-16] MEDS: DOCUSATE SODIUM 100 MG CAPSULE PO SCH ×2 (11:17→20:35)
[2023-01-16] MEDS: FAMOTIDINE 20 MG TABLET PO SCH (11:17)
[2023-01-16] MEDS: NALTREXONE HCL 50 MG TABLET PO SCH (11:20)
[2023-01-16 11:29] VITALS: BP 113/55
[2023-01-16 15:08] VITALS: BP 113/63
[2023-01-16] MEDS: DIVALPROEX SODIUM 500 MG DR TABLET PO SCH (20:36)
[2023-01-16] MEDS: MELATONIN 5 MG TABLET PO SCH (20:40)
[2023-01-16] MEDS: CloZAPine 100 MG TABLET PO SCH (20:40)
[2023-01-16 20:47] VITALS: BP 109/69
[2023-01-17] MEDS: CLINDAMYCIN 600 MG/D5% WATER 50 ML IV SCH ×3 (03:04→18:09)
[2023-01-17 04:30] VITALS: BP 119/63
[2023-01-17] MEDS: HEPARIN SODIUM,PORCINE 5,000 UNITS/ML VIAL SQ SCH ×4 (08:00→23:56)
[2023-01-17] MEDS: CloZAPine 25 MG TABLET PO SCH ×3 (09:00→18:08)
[2023-01-17 10:30] VITALS: BP 94/55
[2023-01-17] MEDS: FAMOTIDINE 20 MG TABLET PO SCH (11:00)
[2023-01-17] MEDS: DOCUSATE SODIUM 100 MG CAPSULE PO SCH ×2 (11:01→20:02)
[2023-01-17] MEDS: NALTREXONE HCL 50 MG TABLET PO SCH (11:01)
[2023-01-17] MEDS ORDERED: PIPERONYL BUTOXIDE/PYRETHRINS 120 ML SHAMPOO TP ONE (12:15)
[2023-01-17 15:04] VITALS: BP 100/56
[2023-01-17 19:45] VITALS: BP 115/62
[2023-01-17] MEDS: CloZAPine 100 MG TABLET PO SCH (20:02)
[2023-01-17] MEDS: MELATONIN 5 MG TABLET PO SCH (20:03)
[2023-01-17] MEDS: DIVALPROEX SODIUM 500 MG DR TABLET PO SCH (20:03)
[2023-01-18] MEDS: CLINDAMYCIN 600 MG/D5% WATER 50 ML IV SCH ×3 (02:48→18:05)
[2023-01-18 07:28] VITALS: BP 118/64
[2023-01-18] MEDS: DOCUSATE SODIUM 100 MG CAPSULE PO SCH ×2 (10:18→20:02)
[2023-01-18] MEDS: NALTREXONE HCL 50 MG TABLET PO SCH (10:18)
[2023-01-18] MEDS: FAMOTIDINE 20 MG TABLET PO SCH (10:18)
[2023-01-18] MEDS: CloZAPine 25 MG TABLET PO SCH ×3 (10:18→18:05)
[2023-01-18] MEDS: HEPARIN SODIUM,PORCINE 5,000 UNITS/ML VIAL SQ SCH ×2 (10:20→16:00)
[2023-01-18 14:54] VITALS: BP 105/59
[2023-01-18 20:01] VITALS: BP 103/60
[2023-01-18] MEDS: MELATONIN 5 MG TABLET PO SCH (20:02)
[2023-01-18] MEDS: CloZAPine 100 MG TABLET PO SCH (20:02)
[2023-01-18] MEDS: DIVALPROEX SODIUM 500 MG DR TABLET PO SCH (20:02)
[2023-01-18] MEDS ORDERED: SODIUM CHLORIDE 0.9% 500 ML IV ONE (20:07)
[2023-01-19] MEDS: HEPARIN SODIUM,PORCINE 5,000 UNITS/ML VIAL SQ SCH ×4 (00:04→15:35)
[2023-01-19] MEDS: CLINDAMYCIN 600 MG/D5% WATER 50 ML IV SCH ×3 (04:33→18:38)
[2023-01-19] MEDS: CloZAPine 25 MG TABLET PO SCH ×3 (09:47→17:39)
[2023-01-19] MEDS: FAMOTIDINE 20 MG TABLET PO SCH (09:47)
[2023-01-19] MEDS: DOCUSATE SODIUM 100 MG CAPSULE PO SCH (09:47)
[2023-01-19] MEDS: NALTREXONE HCL 50 MG TABLET PO SCH (09:47)
[2023-01-19] MEDS ORDERED: CLOZ25TA55 PO (15:14)
[2023-01-19] MEDS ORDERED: FAMO20 PO (15:27)
[2023-01-19 16:17] LABS: COVID AG,FIA SOURCE NASOPHARYNGEAL
[2023-01-19 16:24] VITALS: BP 110/65
[2023-01-19 19:14] VITALS: BP 109/55
== END 2023-01-19 20:22 | DRG 603 ==
LOC: EMS 23:18 → 6N 01-13 07:55 → 6S 01-14 16:56
PROVIDERS: ADMIT Internal Medicine; ATTEND Internal Medicine
DX: L03.213 Periorbital cellulitis (principal); F25.9 Schizoaffective disorder, unspecified; F17.210 Nicotine dependence, cigarettes, uncomplicated; Z20.822 Contact with and (suspected) exposure to COVID-19; F32.A Depression, unspecified; E66.9 Obesity, unspecified; Z68.30 Body mass index [BMI] 30.0-30.9, adult; Z90.5 Acquired absence of kidney; Z90.49 Acquired absence of other specified parts of digestive tract; Z91.199 Patient's noncompliance with other medical treatment and regimen due to unspecified reason; Z79.899 Other long term (current) drug therapy; Z91.014 Allergy to mammalian meats; Z71.6 Tobacco abuse counseling
CPT/HCPCS: 71045; 80053; 80159; 80164; 85025; 99285; J1644; J3490; J7030; J7040; Q9967; 36415-L1; 36415-TC

== ENCOUNTER 2023-01-19 11:26 | Inpatient (IN) | payer MEDICARE, MEDICAID ==
[~2023-01-19] VITALS: Ht 154.9 cm; Wt 82.2 kg
[~2023-01-19 11:26] MED LIST changes: +CLOZ100T11 PO; -CLOZ100T68 PO; -DIVA500T53 PO; +DIVA500T69 PO; +NALT50TA PO; +NALT50TA6 PO; +OMEG-135 PO; +PALI6TAB15 PO
[2023-01-19] MEDS ORDERED: GuaiFENesin/D-METHORPHAN [SUGAR-FREE] 200-20MG/10 ML SYRUP UDCUP PO PRN (13:45)
[2023-01-19] MEDS ORDERED: PROMETHAZINE HCL 25 MG TABLET PO PRN (13:45)
[2023-01-19] MEDS ORDERED: ZOLPIDEM TARTRATE 10 MG TABLET PO PRN (13:45)
[2023-01-19] MEDS ORDERED: MAGNESIUM HYDROXIDE SUSPENSION 30 ML UDCUP PO PRN (13:45)
[2023-01-19] MEDS ORDERED: LOPERAMIDE HCL 2 MG CAPSULE PO PRN (13:45)
[2023-01-19] MEDS ORDERED: HydrOXYzine PAMOATE 50 MG CAPSULE PO PRN (13:45)
[2023-01-19] MEDS ORDERED: MAG HYDROX/AL HYDROX/SIMETH ES 30 ML SUSPENSION UDCUP PO PRN (13:45)
[2023-01-19] MEDS ORDERED: CLOZ25TA55 PO (15:14)
[2023-01-19] MEDS ORDERED: FAMO20 PO (15:27)
[2023-01-19] MEDS ORDERED: MELATONIN 5 MG TABLET PO SCH (21:00)
[2023-01-19] MEDS ORDERED: DIVALPROEX SODIUM 500 MG ER TABLET PO SCH (21:00)
[2023-01-19] MEDS ORDERED: CloZAPine 100 MG TABLET PO SCH (21:00)
[2023-01-20] VITALS: BP 137/72
[2023-01-20 04:28] VITALS: BP 137/72
[2023-01-20] MEDS ORDERED: INFLUENZA VIRUS VACCINE QVS 2022-23 (6MO+)/PF 60 MCG/0.5 ML SYRINGE IM. ONE (05:00)
[2023-01-20] MEDS: OMEGA-3/DHA/EPA/FISH OIL 1,000 MG CAPSULE PO SCH (09:00)
[2023-01-20] MEDS: FOLIC ACID 1 MG TABLET PO SCH (09:00)
[2023-01-20] MEDS: NALTREXONE HCL 50 MG TABLET PO SCH (09:00)
[2023-01-20] MEDS: THIAMINE 100 MG TABLET PO SCH ×2 (09:00→16:29)
[2023-01-20] MEDS: MULTIVITAMINS WITH MINERALS, THERAPEUTIC TABLET PO SCH (09:00)
[2023-01-20 11:07] VITALS: BP 130/76
[2023-01-20] MEDS: DIVALPROEX SODIUM 500 MG ER TABLET PO SCH (16:30)
[2023-01-20] MEDS: CloZAPine 100 MG TABLET PO SCH (16:30)
[2023-01-20] MEDS: MELATONIN 5 MG TABLET PO SCH (16:31)
[2023-01-20 20:42] VITALS: BP 101/65
[2023-01-21 07:13] LABS: BASOPHILS % (AUTO) 0.5 % (0.0-2.0); EOSINOPHILS % (AUTO) 0.2 % (1.0-6.0); HEMATOCRIT 35.5 % (36-46); HEMOGLOBIN 11.8 g/dL (12.0-16.0); LYMPHOCYTES # (AUTO) 2.8 K/uL (1.0-4.8); MEAN CORPUSCULAR HEMOGLOBIN 28.2 pg (26.0-34.0); MEAN CORPUSCULAR HGB CONC 33.1 G/dL (31.0-37.0); MEAN CORPUSCULAR VOLUME 85 fL (80-100); MONOCYTES # (AUTO) 0.6 K/uL (0.1-1.0); MONOCYTES % (AUTO) 7.8 % (2.0-9.0); NEUTROPHILS # (AUTO) 3.9 K/uL (1.8-7.7); NEUTROPHILS % (AUTO) 53.5 % (40.0-70.0); PLATELET COUNT (AUTO) 281 K/uL (150-450); RED BLOOD CELL COUNT(AUTO) 4.17 MIL/uL (4.00-5.20); RED CELL DISTRIBUTION WIDTH 18.9 % (11.5-14.5)
[2023-01-21 07:36] LABS: ALANINE AMINOTRANSFERASE 74 U/L (12-78); ALBUMIN 2.3 g/dL (3.4-5.0); ALKALINE PHOSPHATASE 230 U/L (46-116); ANION GAP 3 mmol/L (8-16); ASPARTATE AMINOTRANSFERASE 40 U/L (15-37); BILIRUBIN,TOTAL 0.2 mg/dL (0.1-1.0); CALCIUM, TOTAL 8.8 mg/dL (8.8-10.5); CARBON DIOXIDE 33 mmol/L (22-29); CHLORIDE 102 mmol/L (98-107); CHOL/HDL RATIO 1.9 (3.9-5.7); CHOLESTEROL 106 mg/dL (131-200); CREATININE 0.82 mg/dL (0.60-1.30); FREE T4 (FREE THYROXINE) 0.96 ng/dL (0.76-1.46); GLOMERULAR FILTR. RATE CALC > 60 mL/min (>60); GLUCOSE,RANDOM 79 mg/dL (70-110); HDL CHOLESTEROL 55 mg/dL (40-60); LDL CHOL (CALC.) 45 mg/dL (0-130); POTASSIUM 4.2 mmol/L (3.5-5.1); SODIUM SERUM 138 mmol/L (136-145); THYROID STIMULATING HORMONE 4.73 uIU/mL (0.36-3.74); TOTAL PROTEIN, SERUM 7.4 g/dL (6.4-8.2); TRIGLYCERIDES 32 mg/dL (15-150); UREA NITROGEN, BLOOD 15 mg/dL (7-18)
[2023-01-21 07:46] LABS: HEMOGLOBIN A1C 6.1 % (3.8-5.6)
[2023-01-21] MEDS: NALTREXONE HCL 50 MG TABLET PO SCH (10:00)
[2023-01-21] MEDS: OMEGA-3/DHA/EPA/FISH OIL 1,000 MG CAPSULE PO SCH (10:00)
[2023-01-21] MEDS: MULTIVITAMINS WITH MINERALS, THERAPEUTIC TABLET PO SCH (10:00)
[2023-01-21] MEDS: THIAMINE 100 MG TABLET PO SCH ×2 (10:00→16:02)
[2023-01-21] MEDS: FOLIC ACID 1 MG TABLET PO SCH (10:00)
[2023-01-21] MEDS: GABAPENTIN 300 MG CAPSULE PO PRN ×2 (10:35→16:02)
[2023-01-21] MEDS: MELATONIN 5 MG TABLET PO SCH ×2 (18:00→20:33)
[2023-01-21] MEDS: CloZAPine 100 MG TABLET PO SCH (20:33)
[2023-01-21] MEDS: DIVALPROEX SODIUM 500 MG ER TABLET PO SCH (20:33)
[2023-01-22] MEDS: THIAMINE 100 MG TABLET PO SCH ×2 (08:31→17:07)
[2023-01-22] MEDS: FOLIC ACID 1 MG TABLET PO SCH (08:31)
[2023-01-22] MEDS: MULTIVITAMINS WITH MINERALS, THERAPEUTIC TABLET PO SCH (08:31)
[2023-01-22] MEDS: OMEGA-3/DHA/EPA/FISH OIL 1,000 MG CAPSULE PO SCH (08:31)
[2023-01-22] MEDS: NALTREXONE HCL 50 MG TABLET PO SCH (08:31)
[2023-01-22] MEDS: GABAPENTIN 300 MG CAPSULE PO PRN ×2 (08:32→17:08)
[2023-01-22] MEDS: DIVALPROEX SODIUM 500 MG ER TABLET PO SCH (17:04)
[2023-01-22] MEDS: MELATONIN 5 MG TABLET PO SCH (17:07)
[2023-01-22] MEDS: CloZAPine 100 MG TABLET PO SCH (17:07)
[2023-01-23] VITALS (8 sets, daily range): BP systolic 105–115; BP diastolic 64–72
[2023-01-23] MEDS: NALTREXONE HCL 50 MG TABLET PO SCH (08:06)
[2023-01-23] MEDS: MULTIVITAMINS WITH MINERALS, THERAPEUTIC TABLET PO SCH (08:06)
[2023-01-23] MEDS: OMEGA-3/DHA/EPA/FISH OIL 1,000 MG CAPSULE PO SCH (08:06)
[2023-01-23] MEDS: FOLIC ACID 1 MG TABLET PO SCH (08:06)
[2023-01-23] MEDS: THIAMINE 100 MG TABLET PO SCH ×2 (08:06→17:00)
[2023-01-23] MEDS: ACETAMINOPHEN 325 MG TABLET PO PRN (09:48)
[2023-01-23] MEDS: DIVALPROEX SODIUM 500 MG ER TABLET PO SCH (18:00)
[2023-01-23] MEDS: MELATONIN 5 MG TABLET PO SCH (18:00)
[2023-01-23] MEDS: CloZAPine 100 MG TABLET PO SCH (18:00)
[2023-01-24] MEDS: OMEGA-3/DHA/EPA/FISH OIL 1,000 MG CAPSULE PO SCH (09:00)
[2023-01-24] MEDS: FOLIC ACID 1 MG TABLET PO SCH (09:00)
[2023-01-24] MEDS: NALTREXONE HCL 50 MG TABLET PO SCH (09:00)
[2023-01-24] MEDS: MULTIVITAMINS WITH MINERALS, THERAPEUTIC TABLET PO SCH (09:00)
[2023-01-24] MEDS: THIAMINE 100 MG TABLET PO SCH ×2 (09:00→18:11)
[2023-01-24 16:27] VITALS: BP 103/55
[2023-01-24] MEDS: DIVALPROEX SODIUM 500 MG ER TABLET PO SCH (18:11)
[2023-01-24] MEDS: CloZAPine 100 MG TABLET PO SCH (18:11)
[2023-01-24] MEDS: MELATONIN 5 MG TABLET PO SCH (18:11)
[2023-01-25 08:08] VITALS: BP 131/78
[2023-01-25] MEDS: OMEGA-3/DHA/EPA/FISH OIL 1,000 MG CAPSULE PO SCH (09:10)
[2023-01-25] MEDS: FOLIC ACID 1 MG TABLET PO SCH (09:10)
[2023-01-25] MEDS: MULTIVITAMINS WITH MINERALS, THERAPEUTIC TABLET PO SCH (09:10)
[2023-01-25] MEDS: NALTREXONE HCL 50 MG TABLET PO SCH (09:10)
[2023-01-25] MEDS: GABAPENTIN 300 MG CAPSULE PO PRN (09:11)
[2023-01-25] MEDS: THIAMINE 100 MG TABLET PO SCH ×2 (09:11→16:04)
[2023-01-25 16:02] VITALS: BP 126/82
[2023-01-25] MEDS: CloZAPine 100 MG TABLET PO SCH (18:53)
[2023-01-25] MEDS: MELATONIN 5 MG TABLET PO SCH (18:54)
[2023-01-25] MEDS: DIVALPROEX SODIUM 500 MG ER TABLET PO SCH (18:54)
[2023-01-25 20:11] VITALS: BP 128/82
[2023-01-26] MEDS: THIAMINE 100 MG TABLET PO SCH ×2 (09:05→16:20)
[2023-01-26] MEDS: MULTIVITAMINS WITH MINERALS, THERAPEUTIC TABLET PO SCH (09:05)
[2023-01-26] MEDS: OMEGA-3/DHA/EPA/FISH OIL 1,000 MG CAPSULE PO SCH (09:05)
[2023-01-26] MEDS: NALTREXONE HCL 50 MG TABLET PO SCH (09:06)
[2023-01-26] MEDS: FOLIC ACID 1 MG TABLET PO SCH (09:06)
[2023-01-26 16:46] VITALS: BP 126/85
[2023-01-26] MEDS: MELATONIN 5 MG TABLET PO SCH (17:00)
[2023-01-26] MEDS: CloZAPine 100 MG TABLET PO SCH (17:00)
[2023-01-26] MEDS: DIVALPROEX SODIUM 500 MG ER TABLET PO SCH (17:01)
[2023-01-26 20:34] VITALS: BP 118/73
[2023-01-27] MEDS: NALTREXONE HCL 50 MG TABLET PO SCH (09:02)
[2023-01-27] MEDS: FOLIC ACID 1 MG TABLET PO SCH (09:02)
[2023-01-27] MEDS: THIAMINE 100 MG TABLET PO SCH ×2 (09:02→16:26)
[2023-01-27] MEDS: MULTIVITAMINS WITH MINERALS, THERAPEUTIC TABLET PO SCH (09:02)
[2023-01-27] MEDS: OMEGA-3/DHA/EPA/FISH OIL 1,000 MG CAPSULE PO SCH (09:03)
[2023-01-27] MEDS: GABAPENTIN 300 MG CAPSULE PO PRN (12:34)
[2023-01-27 16:02] VITALS: BP 108/66
[2023-01-27] MEDS: CloZAPine 100 MG TABLET PO SCH (18:13)
[2023-01-27] MEDS: DIVALPROEX SODIUM 500 MG ER TABLET PO SCH (18:13)
[2023-01-27] MEDS: MELATONIN 5 MG TABLET PO SCH (18:14)
[2023-01-27 19:57] LABS: BASOPHILS % (AUTO) 0.1 % (0.0-2.0); EOSINOPHILS % (AUTO) 0.3 % (1.0-6.0); HEMATOCRIT 32.7 % (36-46); HEMOGLOBIN 10.8 g/dL (12.0-16.0); LYMPHOCYTES # (AUTO) 2.8 K/uL (1.0-4.8); LYMPHOCYTES % (AUTO) 32.9 % (22.0-44.0); MEAN CORPUSCULAR HEMOGLOBIN 28.5 pg (26.0-34.0); MEAN CORPUSCULAR HGB CONC 33.1 G/dL (31.0-37.0); MEAN CORPUSCULAR VOLUME 86 fL (80-100); MONOCYTES # (AUTO) 0.7 K/uL (0.1-1.0); MONOCYTES % (AUTO) 8.1 % (2.0-9.0); NEUTROPHILS % (AUTO) 58.6 % (40.0-70.0); PLATELET COUNT (AUTO) 280 K/uL (150-450); RED BLOOD CELL COUNT(AUTO) 3.79 MIL/uL (4.00-5.20); RED CELL DISTRIBUTION WIDTH 19.5 % (11.5-14.5)
[2023-01-27 20:00] VITALS: BP_SYST 108; BP_SYST 118; BP_DIAS 66
[2023-01-28] MEDS: OMEGA-3/DHA/EPA/FISH OIL 1,000 MG CAPSULE PO SCH (09:31)
[2023-01-28] MEDS: GABAPENTIN 300 MG CAPSULE PO PRN (09:32)
[2023-01-28] MEDS: NALTREXONE HCL 50 MG TABLET PO SCH (09:32)
[2023-01-28] MEDS: FOLIC ACID 1 MG TABLET PO SCH (09:32)
[2023-01-28] MEDS: MULTIVITAMINS WITH MINERALS, THERAPEUTIC TABLET PO SCH (09:32)
[2023-01-28] MEDS: THIAMINE 100 MG TABLET PO SCH ×2 (09:32→16:25)
[2023-01-28 11:44] LABS: BASOPHILS % (AUTO) 1.2 % (0.0-2.0); EOSINOPHILS % (AUTO) 0.2 % (1.0-6.0); HEMATOCRIT 35.6 % (36-46); HEMOGLOBIN 11.8 g/dL (12.0-16.0); LYMPHOCYTES % (AUTO) 29.5 % (22.0-44.0); MEAN CORPUSCULAR HEMOGLOBIN 28.8 pg (26.0-34.0); MEAN CORPUSCULAR HGB CONC 33.3 G/dL (31.0-37.0); MEAN CORPUSCULAR VOLUME 87 fL (80-100); MONOCYTES # (AUTO) 0.6 K/uL (0.1-1.0); MONOCYTES % (AUTO) 9.3 % (2.0-9.0); NEUTROPHILS # (AUTO) 4.1 K/uL (1.8-7.7); NEUTROPHILS % (AUTO) 59.8 % (40.0-70.0); PLATELET COUNT (AUTO) 301 K/uL (150-450); RED BLOOD CELL COUNT(AUTO) 4.11 MIL/uL (4.00-5.20); RED CELL DISTRIBUTION WIDTH 19.9 % (11.5-14.5)
[2023-01-28 17:34] VITALS: BP 113/74
[2023-01-28] MEDS: DIVALPROEX SODIUM 500 MG ER TABLET PO SCH (18:05)
[2023-01-28] MEDS: CloZAPine 100 MG TABLET PO SCH (18:06)
[2023-01-28] MEDS: MELATONIN 5 MG TABLET PO SCH (18:07)
[2023-01-29] MEDS: NALTREXONE HCL 50 MG TABLET PO SCH (08:34)
[2023-01-29] MEDS: OMEGA-3/DHA/EPA/FISH OIL 1,000 MG CAPSULE PO SCH (08:34)
[2023-01-29] MEDS: MULTIVITAMINS WITH MINERALS, THERAPEUTIC TABLET PO SCH (08:34)
[2023-01-29] MEDS: FOLIC ACID 1 MG TABLET PO SCH (08:34)
[2023-01-29 10:20] VITALS: BP 110/69
[2023-01-29 12:30] VITALS: BP 110/69
[2023-01-29 17:05] VITALS: BP 120/75
[2023-01-29] MEDS: MELATONIN 5 MG TABLET PO SCH (18:09)
[2023-01-29] MEDS: CloZAPine 100 MG TABLET PO SCH (18:09)
[2023-01-29] MEDS: DIVALPROEX SODIUM 500 MG ER TABLET PO SCH (18:09)
[2023-01-29 21:23] VITALS: BP 123/79
[2023-01-30] MEDS: OMEGA-3/DHA/EPA/FISH OIL 1,000 MG CAPSULE PO SCH ×2 (08:51→09:30)
[2023-01-30] MEDS: NALTREXONE HCL 50 MG TABLET PO SCH ×2 (08:51→09:30)
[2023-01-30] MEDS: MULTIVITAMINS WITH MINERALS, THERAPEUTIC TABLET PO SCH ×2 (08:52→09:30)
[2023-01-30 16:27] VITALS: BP 127/71
[2023-01-30] MEDS: CloZAPine 100 MG TABLET PO SCH (17:18)
[2023-01-30] MEDS: MELATONIN 5 MG TABLET PO SCH (17:18)
[2023-01-30] MEDS: DIVALPROEX SODIUM 500 MG ER TABLET PO SCH (17:18)
[2023-01-31 08:07] LABS: COVID AG,FIA SOURCE NASAL SWAB
[2023-01-31] MEDS: OLANZapine 5 MG RAPDIS TABLET PO PRN (08:10)
[2023-01-31] MEDS: GABAPENTIN 300 MG CAPSULE PO PRN (08:10)
[2023-01-31] MEDS: OMEGA-3/DHA/EPA/FISH OIL 1,000 MG CAPSULE PO SCH (08:10)
[2023-01-31] MEDS: MULTIVITAMINS WITH MINERALS, THERAPEUTIC TABLET PO SCH (08:10)
[2023-01-31] MEDS: NALTREXONE HCL 50 MG TABLET PO SCH (08:13)
[2023-01-31 16:11] VITALS: BP 99/69
[2023-01-31] MEDS: MELATONIN 5 MG TABLET PO SCH (17:30)
[2023-01-31] MEDS: DIVALPROEX SODIUM 500 MG ER TABLET PO SCH (17:31)
[2023-01-31] MEDS: CloZAPine 100 MG TABLET PO SCH (17:32)
[2023-02-01] MEDS: OMEGA-3/DHA/EPA/FISH OIL 1,000 MG CAPSULE PO SCH (08:20)
[2023-02-01] MEDS: MULTIVITAMINS WITH MINERALS, THERAPEUTIC TABLET PO SCH (08:20)
[2023-02-01] MEDS: NALTREXONE HCL 50 MG TABLET PO SCH (08:20)
[2023-02-01] MEDS: OLANZapine 5 MG RAPDIS TABLET PO PRN (08:21)
[2023-02-01] MEDS: GABAPENTIN 300 MG CAPSULE PO PRN (08:21)
[2023-02-01 08:31] VITALS: BP 140/80
[2023-02-01 16:09] VITALS: BP 127/62
[2023-02-01] MEDS: ACETAMINOPHEN 325 MG TABLET PO PRN (16:46)
[2023-02-01] MEDS: MELATONIN 5 MG TABLET PO SCH (17:34)
[2023-02-01] MEDS: DIVALPROEX SODIUM 500 MG ER TABLET PO SCH (17:34)
[2023-02-01] MEDS: CloZAPine 100 MG TABLET PO SCH (17:34)
[2023-02-01 20:55] VITALS: BP 131/78
[2023-02-02 08:20] VITALS: BP 107/55
[2023-02-02] MEDS: NALTREXONE HCL 50 MG TABLET PO SCH (08:25)
[2023-02-02] MEDS: OMEGA-3/DHA/EPA/FISH OIL 1,000 MG CAPSULE PO SCH (08:25)
[2023-02-02] MEDS: MULTIVITAMINS WITH MINERALS, THERAPEUTIC TABLET PO SCH (08:25)
[2023-02-02 15:49] LABS: ALANINE AMINOTRANSFERASE 54 U/L (12-78); ALBUMIN 2.7 g/dL (3.4-5.0); ALKALINE PHOSPHATASE 239 U/L (46-116); ANION GAP 4 mmol/L (8-16); ASPARTATE AMINOTRANSFERASE 44 U/L (15-37); BILIRUBIN,TOTAL 0.2 mg/dL (0.1-1.0); CALCIUM, TOTAL 8.7 mg/dL (8.8-10.5); CARBON DIOXIDE 32 mmol/L (22-29); CHLORIDE 101 mmol/L (98-107); CREATININE 0.76 mg/dL (0.60-1.30); GLOMERULAR FILTR. RATE CALC > 60 mL/min (>60); GLUCOSE,RANDOM 101 mg/dL (70-110); POTASSIUM 4.2 mmol/L (3.5-5.1); SODIUM SERUM 137 mmol/L (136-145); TOTAL PROTEIN, SERUM 7.8 g/dL (6.4-8.2); UREA NITROGEN, BLOOD 18 mg/dL (7-18)
[2023-02-02 15:59] LABS: BASOPHILS % (AUTO) 1.2 % (0.0-2.0); EOSINOPHILS % (AUTO) 0.2 % (1.0-6.0); HEMATOCRIT 35.4 % (36-46); HEMOGLOBIN 11.8 g/dL (12.0-16.0); LYMPHOCYTES # (AUTO) 2.8 K/uL (1.0-4.8); LYMPHOCYTES % (AUTO) 32.6 % (22.0-44.0); MEAN CORPUSCULAR HGB CONC 33.4 G/dL (31.0-37.0); MEAN CORPUSCULAR VOLUME 87 fL (80-100); MONOCYTES # (AUTO) 0.7 K/uL (0.1-1.0); MONOCYTES % (AUTO) 7.8 % (2.0-9.0); NEUTROPHILS % (AUTO) 58.2 % (40.0-70.0); PLATELET COUNT (AUTO) 253 K/uL (150-450); RED BLOOD CELL COUNT(AUTO) 4.08 MIL/uL (4.00-5.20); RED CELL DISTRIBUTION WIDTH 20.1 % (11.5-14.5)
[2023-02-02 16:59] VITALS: BP 119/72
[2023-02-02] MEDS: DIVALPROEX SODIUM 500 MG ER TABLET PO SCH (18:17)
[2023-02-02] MEDS: MELATONIN 5 MG TABLET PO SCH (18:17)
[2023-02-02] MEDS: CloZAPine 100 MG TABLET PO SCH (18:18)
[2023-02-02 20:17] VITALS: BP 123/83
[2023-02-03] MEDS: NALTREXONE HCL 50 MG TABLET PO SCH (08:06)
[2023-02-03] MEDS: OMEGA-3/DHA/EPA/FISH OIL 1,000 MG CAPSULE PO SCH (08:06)
[2023-02-03] MEDS: MULTIVITAMINS WITH MINERALS, THERAPEUTIC TABLET PO SCH (08:06)
[2023-02-03 08:50] VITALS: BP 121/87
[2023-02-03 16:08] VITALS: BP 132/68
[2023-02-03] MEDS: CloZAPine 100 MG TABLET PO SCH (18:05)
[2023-02-03] MEDS: DIVALPROEX SODIUM 500 MG ER TABLET PO SCH (18:05)
[2023-02-03] MEDS: MELATONIN 5 MG TABLET PO SCH (18:05)
[2023-02-03] MEDS ORDERED: OMEG-135 PO (19:24)
[2023-02-03] MEDS ORDERED: NALT50TA PO (19:24)
[2023-02-03] MEDS ORDERED: DIVA500T69 PO (19:24)
[2023-02-03] MEDS ORDERED: MELA5TAB40 PO (19:24)
[2023-02-03] MEDS ORDERED: CLOZ100T11 PO (19:24)
[2023-02-03 20:30] VITALS: BP 140/75
[2023-02-04] MEDS: MULTIVITAMINS WITH MINERALS, THERAPEUTIC TABLET PO SCH (08:10)
[2023-02-04] MEDS: OMEGA-3/DHA/EPA/FISH OIL 1,000 MG CAPSULE PO SCH (08:10)
[2023-02-04] MEDS: NALTREXONE HCL 50 MG TABLET PO SCH (08:10)
[2023-02-04 08:30] VITALS: BP 139/82
[2023-02-04 16:38] VITALS: BP 104/62
[2023-02-04] MEDS: DIVALPROEX SODIUM 500 MG ER TABLET PO SCH (18:13)
[2023-02-04] MEDS: CloZAPine 100 MG TABLET PO SCH (18:14)
[2023-02-04] MEDS: MELATONIN 5 MG TABLET PO SCH (18:14)
[2023-02-04 20:39] VITALS: BP 122/72
[2023-02-05] MEDS: OMEGA-3/DHA/EPA/FISH OIL 1,000 MG CAPSULE PO SCH (08:25)
[2023-02-05] MEDS: NALTREXONE HCL 50 MG TABLET PO SCH (08:25)
[2023-02-05] MEDS: MULTIVITAMINS WITH MINERALS, THERAPEUTIC TABLET PO SCH (08:25)
[2023-02-05] MEDS: OLANZapine 5 MG RAPDIS TABLET PO PRN (08:44)
[2023-02-05 09:02] VITALS: BP 131/79
[2023-02-05 16:04] VITALS: BP 105/64
[2023-02-05] MEDS: MELATONIN 5 MG TABLET PO SCH (17:53)
[2023-02-05] MEDS: CloZAPine 100 MG TABLET PO SCH (17:53)
[2023-02-05] MEDS: DIVALPROEX SODIUM 500 MG ER TABLET PO SCH (17:53)
[2023-02-06] MEDS: OMEGA-3/DHA/EPA/FISH OIL 1,000 MG CAPSULE PO SCH (08:14)
[2023-02-06] MEDS: MULTIVITAMINS WITH MINERALS, THERAPEUTIC TABLET PO SCH (08:14)
[2023-02-06] MEDS: GABAPENTIN 300 MG CAPSULE PO PRN (08:14)
[2023-02-06] MEDS: OLANZapine 5 MG RAPDIS TABLET PO PRN (08:14)
[2023-02-06] MEDS: NALTREXONE HCL 50 MG TABLET PO SCH (08:14)
[2023-02-06 10:33] VITALS: BP 121/83
[2023-02-06 16:56] VITALS: BP 111/62
[2023-02-06] MEDS: ACETAMINOPHEN 325 MG TABLET PO PRN (17:00)
[2023-02-06] MEDS: DIVALPROEX SODIUM 500 MG ER TABLET PO SCH (17:38)
[2023-02-06] MEDS: CloZAPine 100 MG TABLET PO SCH (17:38)
[2023-02-06] MEDS: MELATONIN 5 MG TABLET PO SCH (17:39)
[2023-02-07] MEDS: MULTIVITAMINS WITH MINERALS, THERAPEUTIC TABLET PO SCH (08:12)
[2023-02-07] MEDS: OLANZapine 5 MG RAPDIS TABLET PO PRN (08:12)
[2023-02-07] MEDS: GABAPENTIN 300 MG CAPSULE PO PRN (08:12)
[2023-02-07] MEDS: OMEGA-3/DHA/EPA/FISH OIL 1,000 MG CAPSULE PO SCH (08:13)
[2023-02-07] MEDS: NALTREXONE HCL 50 MG TABLET PO SCH (08:13)
[2023-02-07 09:42] VITALS: BP 140/76
[2023-02-07 16:01] VITALS: BP 117/67
[2023-02-07] MEDS: CloZAPine 100 MG TABLET PO SCH (16:52)
[2023-02-07] MEDS: DIVALPROEX SODIUM 500 MG ER TABLET PO SCH (16:52)
[2023-02-07] MEDS: MELATONIN 5 MG TABLET PO SCH (16:52)
[2023-02-07 20:10] VITALS: BP 128/76
[2023-02-07 20:29] VITALS: BP 125/71
[2023-02-08 08:11] LABS: COVID AG,FIA SOURCE NASAL SWAB
[2023-02-08] MEDS: NALTREXONE HCL 50 MG TABLET PO SCH (08:27)
[2023-02-08] MEDS: MULTIVITAMINS WITH MINERALS, THERAPEUTIC TABLET PO SCH (08:27)
[2023-02-08] MEDS: OLANZapine 5 MG RAPDIS TABLET PO PRN ×2 (08:27→18:33)
[2023-02-08] MEDS: GABAPENTIN 300 MG CAPSULE PO PRN ×2 (08:27→18:33)
[2023-02-08] MEDS: OMEGA-3/DHA/EPA/FISH OIL 1,000 MG CAPSULE PO SCH (08:27)
[2023-02-08] MEDS ORDERED: INFLUENZA VIRUS VACCINE QVS 2022-23 (6MO+)/PF 60 MCG/0.5 ML SYRINGE IM. ONE (11:30)
[2023-02-08 17:09] VITALS: BP 101/66
[2023-02-08] MEDS: DIVALPROEX SODIUM 500 MG ER TABLET PO SCH (17:41)
[2023-02-08] MEDS: CloZAPine 100 MG TABLET PO SCH (17:41)
[2023-02-08] MEDS: MELATONIN 5 MG TABLET PO SCH (17:42)
[2023-02-09] MEDS: OMEGA-3/DHA/EPA/FISH OIL 1,000 MG CAPSULE PO SCH (08:01)
[2023-02-09] MEDS: NALTREXONE HCL 50 MG TABLET PO SCH (08:01)
[2023-02-09] MEDS: OLANZapine 5 MG RAPDIS TABLET PO PRN (08:01)
[2023-02-09] MEDS: MULTIVITAMINS WITH MINERALS, THERAPEUTIC TABLET PO SCH (08:01)
[2023-02-09 08:04] VITALS: BP 137/81
[2023-02-09 13:51] LABS: COVID AG,FIA SOURCE NASAL SWAB
[2023-02-09 15:16] LABS: BASOPHILS % (AUTO) 1.2 % (0.0-2.0); EOSINOPHILS % (AUTO) 0.1 % (1.0-6.0); LYMPHOCYTES # (AUTO) 2.1 K/uL (1.0-4.8); LYMPHOCYTES % (AUTO) 29.9 % (22.0-44.0); MEAN CORPUSCULAR HEMOGLOBIN 29.5 pg (26.0-34.0); MEAN CORPUSCULAR HGB CONC 33.4 G/dL (31.0-37.0); MEAN CORPUSCULAR VOLUME 88 fL (80-100); MONOCYTES # (AUTO) 0.7 K/uL (0.1-1.0); NEUTROPHILS # (AUTO) 4.1 K/uL (1.8-7.7); NEUTROPHILS % (AUTO) 58.8 % (40.0-70.0); PLATELET COUNT (AUTO) 268 K/uL (150-450); RED BLOOD CELL COUNT(AUTO) 4.07 MIL/uL (4.00-5.20); RED CELL DISTRIBUTION WIDTH 19.4 % (11.5-14.5)
== END 2023-02-09 15:07 | disposition home or self-care (01) | DRG 885 ==
LOC: B3A 20:39 → 3EC 01-24 16:59
PROVIDERS: ADMIT Psychiatry & Neurology Psychiatry; ATTEND Psychiatry & Neurology Psychiatry
DX: F25.9 Schizoaffective disorder, unspecified (principal); F06.30 Mood disorder due to known physiological condition, unspecified; F79 Unspecified intellectual disabilities; H05.012 Cellulitis of left orbit; L03.213 Periorbital cellulitis; D64.9 Anemia, unspecified; F15.90 Other stimulant use, unspecified, uncomplicated; F17.200 Nicotine dependence, unspecified, uncomplicated; R73.03 Prediabetes; K21.9 Gastro-esophageal reflux disease without esophagitis; E03.8 Other specified hypothyroidism; Z20.822 Contact with and (suspected) exposure to COVID-19; Z55.9 Problems related to education and literacy, unspecified; Z59.00 Homelessness unspecified; Z63.9 Problem related to primary support group, unspecified; Z65.3 Problems related to other legal circumstances; Z90.5 Acquired absence of kidney; Z91.014 Allergy to mammalian meats; Z91.199 Patient's noncompliance with other medical treatment and regimen due to unspecified reason; Z23 Encounter for immunization
CPT/HCPCS: 71046; 80053; 80061; 80159; 80164; 83036; 84439; 84443; 85025; 87081; 90686; Q9967; 36415-L1; 36415-TC; G0008

== ENCOUNTER 2023-01-23 11:47 | Emergency (ER) | payer MEDICARE, MEDICAID ==
[~2023-01-23] VITALS: Ht 162.6 cm; Wt 76.4 kg
[~2023-01-23 11:47] MED LIST changes: -ACET-2247 PO; -BISA10SU11 PR; -CLIN-26 PO; +CLOZ25TA55 PO; -DOCU-385 PO; -DOXY-354 PO; +FAMO20 PO; -LORA-1001 PO; -OLAN5TAB94 PO; -OMEG-135 PO; -PANT-31 PO
[2023-01-23] MEDS ORDERED: LIDOCAINE 1% 10 ML VIAL SQ ONE (14:15)
[2023-01-23] MEDS ORDERED: ACETAMINOPHEN 500 MG TABLET PO ONE (14:15)
[2023-01-23] MEDS ORDERED: PERTUSS(ACELL),DIPH,TET VAC/PF 0.5 ML SYRINGE IM. ONE (14:15)
[2023-01-23] MEDS ORDERED: BACITRACIN 0.9 GM PACKET OINTMENT TP ONE (14:15)
[2023-01-23] MEDS ORDERED: CEPHALEXIN MONOHYDRATE 500 MG CAPSULE PO ONE (14:15)
[2023-01-23] MEDS ORDERED: GABAPENTIN 300 MG CAPSULE PO ONE (16:15)
[2023-01-23] MEDS ORDERED: CloZAPine 100 MG TABLET PO ONE (16:15)
[2023-01-23] MEDS ORDERED: HydrOXYzine PAMOATE 50 MG CAPSULE PO ONE (16:15)
[2023-01-23] MEDS ORDERED: VALPROIC ACID 250 MG CAPSULE PO ONE (16:15)
[2023-01-23] MEDS: CEPHALEXIN MONOHYDRATE 500 MG CAPSULE PO SCH (20:56)
[2023-01-23] MEDS ORDERED: LORazepam 2 MG/ML VIAL IM ONE (23:45)
[2023-01-23] MEDS ORDERED: HALOPERIDOL LACTATE 5 MG/ML VIAL IM ONE (23:45)
[2023-01-23] MEDS ORDERED: DiphenhydrAMINE HCL 50 MG/ML VIAL IM ONE (23:45)
[2023-01-24] MEDS: CEPHALEXIN MONOHYDRATE 500 MG CAPSULE PO SCH (08:40)
[2023-01-24 15:17] LABS: COVID AG,FIA SOURCE NASAL SWAB
[2023-01-24 15:52] VITALS: BP 108/67
== END 2023-01-24 16:10 | disposition home or self-care (01) ==
LOC: EMS 11:50 → UNDOADMIN 01-24 15:00 → 3EC 01-24 15:00 → EMS 01-24 16:10
DX: S92.515A Nondisplaced fracture of proximal phalanx of left lesser toe(s), initial encounter for closed fracture (principal); F25.9 Schizoaffective disorder, unspecified; M19.90 Unspecified osteoarthritis, unspecified site; F17.210 Nicotine dependence, cigarettes, uncomplicated; F32.A Depression, unspecified; Z98.890 Other specified postprocedural states; Z20.822 Contact with and (suspected) exposure to COVID-19; Z90.49 Acquired absence of other specified parts of digestive tract; W22.8XXA Striking against or struck by other objects, initial encounter; Y93.89 Activity, other specified; Y92.89 Other specified places as the place of occurrence of the external cause; Y99.8 Other external cause status
CPT/HCPCS: 99285; 87426; 73660; 90715; 90471; 12002; 96372; J1200; J1630; J2060; J3490